=== PATIENT | male | born 1960 | race Two or more races ===

== ENCOUNTER 2016-07-21 09:29 | Inpatient (IN) | payer OTHER ==
[2016-07-21 09:56] VITALS: BMI 25.7
--- NOTE | 2016-07-21 13:11 | HP ---
COWS - Scale Resting Pulse: 0= [place] 80 or Below Sweatin=Flushed/Facial Moisture Restless Observation: 1= Difficult to Sit Still Pupil Size: 0= Normal to Room Light Bone or Joint Aches: 2= Severe Diffuse Aches Runny Nose/ Eye Tearin= Runny Nose/Eyes GI Upset > 30mins: 2= Nausea/Diarrhea Tremor Observation: 2= Slight Tremor Visible Yawning Observation: 2= >3x During Session Anxiety or Irritability: 2=Irritable/Anxious Goose Flesh Skin: 3=Piloerection COWS Score: 18 CIWA Score - CIWA Score Nausea/Vomitin-Mild Nausea/No Vomiting Muscle Tremors: 4-Moderate,w/Arms Extend Anxiety: 4-Mod. Anxious/Guarded Agitation: 4-Moderately Restless Paroxysmal Sweats: 3 Orientation: 0-Oriented Tacttile Disturbances: 0-None Auditory Disturbances: 0-None Visual Disturbances: 0-None Headache: 1-Very Mild CIWA-Ar Total Score: 17 Admission ROS BHS - HPI Chief Complaint: I am here for detox then to go to rehab. Allergies/Adverse Reactions: Allergies Allergy/AdvReac Type Severity Reaction Status Date / Time No Known Allergies Allergy Verified 07/21/16 11:34 History of Present Illness: pt is a 56yr old male with a history of heroin, alcohol and xanax dependence seeking detox for treatment. Exam Limitations: No Limitations - Ebola screening Have you traveled outside of the country in the last 21 days: No Have you had contact with anyone from an Ebola affected area: No Have you been sick,other than usual withdrawal symptoms: No Do you have a fever: No - Review of Systems Constitutional: Chills, Diaphoresis, Loss of Appetite, Night Sweats, Changes in sleep, Unintentional Wgt. Loss EENT: reports: Blurred Vision, Tearing Respiratory: reports: Cough Cardiac: reports: No Symptoms Reported GI: reports: Diarrhea, Nausea, Poor Appetite, Poor Fluid Intake, Indigestion : reports: No Symptoms Reported Musculoskeletal: reports: No Symptoms Reported Integumentary: reports: Flushing, Sweating Neuro: reports: Headache, Tingling, Tremors Endocrine: reports: Excessive Sweating, Flushing, Intolerance to Cold, Intolerance to Heat Hematology: reports: No Symptoms Reported Psychiatric: reports: Judgement Intact, Mood/Affect Appropiate, Orientated x3, Agitated, Anxious Other Systems: Reviewed and Negative Patient History - Patient Medical History Hx Anemia: No Hx Asthma: No Hx Chronic Obstructive Pulmonary Disease (COPD): No Hx Cancer: No Hx Cardiac Disorders: No Hx Congestive Heart Failure: No Hx Hypertension: No Hx Hypercholesterolemia: No Hx Pacemaker: No HX Cerebrovascular Accident: No Hx Seizures: No Hx Dementia: No Hx Diabetes: No Hx Gastrointestinal Disorders: Yes (GERD) Hx Liver Disease: No Hx Genitourinary Disorders: No Hx Sexually Transmitted Disorders: No Hx Renal Disease (ESRD): No Hx Thyroid Disease: No Hx Human Immunodeficiency Virus (HIV): No (NEGATIVE LAST 09/30) Hx Hepatitis C: Yes (follow up with pcp) Hx Depression: Yes Hx Suicide Attempt: Yes (Tried to burn himself) Hx Bipolar Disorder: No Hx Schizophrenia: No - Patient Surgical History Past Surgical History: Yes Hx Neurologic Surgery: No Hx Cataract Extraction: No Hx Cardiac Surgery: No Hx Lung Surgery: No Hx Breast Surgery: No Hx Breast Biopsy: No Hx Abdominal Surgery: No Hx Appendectomy: No Hx Cholecystectomy: No Hx Genitourinary Surgery: No Hx Section: No Hx Orthopedic Surgery: Yes (rt patella surgery at age 13 (fall)) Anesthesia Reaction: No - PPD History Previous Implant?: Yes Documented Results: Negative w/proof Implanted On Prior R Admission?: Yes Date: 05/26/16 Results: 0 mm PPD to be Administered?: No - Reproductive History Patient is a Female of Child Bearing Age (11 -55 yrs old): No - Smoking Cessation Smoking history: Current every day smoker Have you smoked in the past 12 months: Yes Aproximately how many cigarettes per day: 20 Cigars Per Day: 20 Hx Chewing Tobacco Use: No Initiated information on smoking cessation: Yes 'Breaking Loose' booklet given: 07/21/16 - Substance & Tx. History Hx Alcohol Use: Yes Hx Substance Use: Yes Substance Use Type: Alcohol, Heroin, Tranquilizers Hx Substance Use Treatment: Yes - Substances Abused Heroin Route: Inhalation Frequency: Daily Amount used: 12-15 bags Age of first use: 49 Date of Last Use: 07/21/16 Alcohol Route: Oral Frequency: Daily Amount used: 10 beers Age of first use: 22 Date of Last Use: 07/20/16 Alprazolam (Xanax) Route: Oral Frequency: Daily Amount used: 6mg Age of first use: 49 Date of Last Use: 07/20/16 Family Disease History - Family Disease History Family Disease History: CA: Mother (ca of breast with metastasis,) Admission Physical Exam [facility] - Vital Signs Vital Signs: Vital Signs - 24 hr 07/21/16 09:54 Temperature 98.2 F Pulse Rate 74 Respiratory 18 Rate Blood Pressure 126/77 - Physical General Appearance: Yes: Appropriately Dressed, Moderate Distress, Thin, Tremorous, Irritable, Sweating, Anxious HEENTM: Yes: Hearing grossly Normal, Normal Voice Respiratory: Yes: Normal Breath Sounds, No Respiratory Distress, Rhonchi, Wheezing Neck: Yes: No masses,lesions,Nodules Breast: Yes: Within Normal Limits, No Discharge, No masses Cardiology: Yes: Regular Rhythm, Regular Rate, S1, S2 Abdominal: Yes: Normal Bowel Sounds, Non Tender, Soft Genitourinary: Yes: Within Normal Limits Back: Yes: Normal Inspection Musculoskeletal: Yes: full range of Motion Extremities: Yes: Normal Capillary Refill, Normal Inspection, Non-Tender, Tremors Neurological: Yes: Fully Oriented, Alert, Normal Response Integumentary: Yes: Normal Color, Diaphoresis Lymphatic: Yes: Within Normal Limits - Diagnostic (1) Cocaine dependence Current Visit: Yes Status: Chronic Qualifiers: Substance use status: uncomplicated Qualified Code(s): F14.20 - Cocaine dependence, uncomplicated (2) Alcohol dependence with uncomplicated withdrawal Current Visit: Yes Status: Chronic (3) GERD (gastroesophageal reflux disease) Current Visit: Yes Status: Chronic Qualifiers: Esophagitis presence: without esophagitis Qualified Code(s): K21.9 - Gastro-esophageal reflux disease without esophagitis (4) Opioid dependence with withdrawal Current Visit: Yes Status: Chronic (5) Sedative, hypnotic or anxiolytic dependence with withdrawal, uncomplicated Current Visit: Yes Status: Chronic Cleared for Admission [facility] - Detox or Rehab [facility] Level of Care: Medically Managed Detox Regimen/Protocol: Methadone/Valium [facility] Breath Alcohol Content Breath Alcohol Content: 0 Urine Drug Screen - Results Drug Screen Negative: No Urine Drug Screen Results: OPI-Opiates, MDMA-Ecstasy, BZO-Benzodiazepines, MTD- Methadone, TCA-Tricyclic Antidepress, OXY-Oxycodone
[2016-07-21] MEDS ORDERED: hydrOXYzine PAMOATE 50 MG CAPSULE (FP) PO PRN (13:41)
[2016-07-21] MEDS ORDERED: MAGNESIUM CITRATE 300 ML BOTTLE PO PRN (13:41)
[2016-07-21] MEDS ORDERED: guaiFENesin/D-METHORPHAN HB 10 ML UNIT-DOSE CUPS PO PRN (13:41)
[2016-07-21] MEDS ORDERED: LOPERAMIDE HCL 2 MG CAPSULE PO PRN (13:41)
[2016-07-21] MEDS ORDERED: IBUPROFEN 400 MG TABLET (FP) PO PRN (13:41)
[2016-07-21] MEDS ORDERED: NICOTINE POLACRILEX 4 MG GUM BUC PRN (13:41)
[2016-07-21] MEDS ORDERED: P-EPHED 60MG/TRIPROLIDI 2.5MG TABLET PO PRN (13:41)
[2016-07-21] MEDS ORDERED: MAG HYDROX/AL HYDROX/SIMETH 30 ML UNIT-DOSE CUP PO PRN (13:41)
[2016-07-21] MEDS ORDERED: MENTHOL/PHENOL 1 EACH UD MM PRN (13:41)
[2016-07-21] MEDS ORDERED: diphenhydrAMINE HCL 50 MG CAPSULE PO PRN (13:41)
[2016-07-21] MEDS ORDERED: MAGNESIUM HYDROX 2400MG/30ML ORAL SUSPENSION 30 ML CUP PO PRN (13:41)
[2016-07-21] MEDS ORDERED: ACETAMINOPHEN 325 MG TABLET (FP) PO PRN (13:41)
[2016-07-21] MEDS ORDERED: PATIENT'S OWN MEDICATION (NON-FORMULARY) (Meloxicam 15 MG) PO PRN (13:46)
[2016-07-21] MEDS ORDERED: diazePAM 5 MG TABLET PO ONE (14:07)
[2016-07-21] MEDS ORDERED: METHADONE HCL 10 MG TABLET (FOR DETOX USE ONLY) PO ONE ×2 (14:10→23:00)
[2016-07-21 14:55] LABS: HIV 1 & 2 AB NEGATIVE; HIV 1 AGp24 NEGATIVE
[2016-07-21 17:42] LABS: URINE APPEARANCE CLEAR; URINE BILIRUBIN NEGATIVE (NEGATIVE); URINE BLOOD NEGATIVE (NEGATIVE); URINE COLOR YELLOW; URINE GLUCOSE (UA) NEGATIVE (NEGATIVE); URINE KETONE NEGATIVE (NEGATIVE); URINE LEUK ESTERASE NEGATIVE (NEGATIVE); URINE NITRITE NEGATIVE (NEGATIVE); URINE PROTEIN NEGATIVE (NEGATIVE); URINE UROBILINOGEN NEGATIVE E.U./dl (0.2-1.0)
[2016-07-21] MEDS: diazePAM 5 MG TABLET PO SCH (22:14)
[2016-07-21] MEDS: RANITIDINE HCL 150 MG TABLET (FP) PO SCH (22:14)
[2016-07-21] MEDS: NAPROXEN 500 MG TABLET (FP) PO SCH (22:14)
[2016-07-21] MEDS: GABAPENTIN 300 MG CAPSULE (FP) PO SCH (22:14)
[2016-07-21] MEDS: THIAMINE HCL 100 MG TABLET (FP) PO SCH (22:14)
[2016-07-21] MEDS ORDERED: ZOLPIDEM TARTRATE 5 MG TABLET ONE (22:53)
[2016-07-22] MEDS: diazePAM 5 MG TABLET PO SCH ×3 (05:57→22:16)
[2016-07-22] MEDS ORDERED: METHADONE HCL 10 MG TABLET (FOR DETOX USE ONLY) PO SCH (10:00)
[2016-07-22 10:16] LABS: MCH 32.1 pg (25.7-33.7); MCHC 33.5 g/dl (32.0-35.9); MEAN CELL VOLUME 95.9 fl (80-96); MEAN PLT VOLUME 8.4 fl (7.5-11.1); PLATELET COUNT 194 K/MM3 (134-434); RDW 13.2 % (11.9-15.9); WHITE BLOOD COUNT 6.3 K/mm3 (4.0-10.0)
--- NOTE | 2016-07-22 10:28 | PN ---
S CIWA - CIWA Score Nausea/Vomitin Muscle Tremors: 3 Anxiety: 2 Agitation: 2 Paroxysmal Sweats: 1-Minimal Palms Moist Orientation: 0-Oriented Tacttile Disturbances: 1-Very Mild Itch/Numbness Auditory Disturbances: 1-Very Mild Visual Disturbances: 1-Very Mild Sensitivity Headache: 2-Mild CIWA-Ar Total Score: 16 BHS COWS - Scale Resting Pulse: 0= [place] 80 or Below Sweatin= Chills/Flushing Restless Observation: 3= Extraneous Movement Pupil Size: 1= Pupils >than Normal Bone or Joint Aches: 2= Severe Diffuse Aches Runny Nose/ Eye Tearin= Runny Nose/Eyes GI Upset > 30mins: 3= Vomiting/Diarrhea Tremor Observation of Outstretched Hands: 2= Slight Tremor Visible Yawning Observation: 1= 1-2x During Session Anxiety or Irritability: 2=Irritable/Anxious Goose Flesh Skin: 0=Smooth Skin COWS Score: 17 S Progress Note (SOAP) Subjective: ALERT,IRRITABLE,ANXIOUS,INTERRUPTED SLEEP,TREMOR,PAIN IN THE BODY AND BACK Objective: 07/22/16 10:27 Vital Signs Temperature 97.2 F L 07/22/16 09:45 Pulse Rate 73 07/22/16 09:45 Respiratory Rate 18 07/22/16 09:45 Blood Pressure 100/67 07/22/16 09:45 O2 Sat by Pulse Oximetry (%) EKG NSR Laboratory Last Values WBC 6.3 K/mm3 (4.0-10.0) 07/22/16 06:00 RBC 4.26 M/mm3 (4.00-5.60) 07/22/16 06:00 Hgb 13.7 GM/dL (11.7-16.9) 07/22/16 06:00 Hct 40.8 % (35.4-49) 07/22/16 06:00 MCV 95.9 fl (80-96) 07/22/16 06:00 MCHC 33.5 g/dl (32.0-35.9) 07/22/16 06:00 RDW 13.2 % (11.9-15.9) 07/22/16 06:00 Plt Count 194 K/MM3 (134-434) 07/22/16 06:00 MPV 8.4 fl (7.5-11.1) 07/22/16 06:00 Urine Color Yellow 07/21/16 15:20 Urine Appearance Clear 07/21/16 15:20 Urine pH 5.0 (5.0-8.0) D 07/21/16 15:20 Ur Specific [place] 1.015 (1.001-1.035) 07/21/16 15:20 Urine Protein Negative (NEGATIVE) 07/21/16 15:20 Urine Glucose (UA) Negative (NEGATIVE) 07/21/16 15:20 Urine Ketones Negative (NEGATIVE) 07/21/16 15:20 Urine Blood Negative (NEGATIVE) 07/21/16 15:20 Urine Nitrite Negative (NEGATIVE) 07/21/16 15:20 Urine Bilirubin Negative (NEGATIVE) 07/21/16 15:20 Urine Urobilinogen Negative E.U./dl (0.2-1.0) 07/21/16 15:20 Ur Leukocyte Esterase Negative (NEGATIVE) 07/21/16 15:20 HIV 1&2 Antibody Screen Negative 07/21/16 11:35 HIV P24 Antigen Negative 07/21/16 11:35 LABS PENDING Assessment: 07/22/16 10:28 WITHDRAWAL SYMPTOM Plan: CONTINUE DETOX
[2016-07-22] MEDS: NAPROXEN 500 MG TABLET (FP) PO SCH ×2 (10:36→22:16)
[2016-07-22] MEDS: AMITRIPTYLINE HCL 25 MG TABLET (FP) PO SCH ×2 (10:36→22:15)
[2016-07-22] MEDS: NICOTINE 21 MG/24 HOURS TOPICAL PATCH TD SCH (10:36)
[2016-07-22] MEDS: RANITIDINE HCL 150 MG TABLET (FP) PO SCH ×2 (10:36→22:16)
[2016-07-22] MEDS: PRENATAL VITAMINS W/ FOLIC ACID TABLET (FP) PO SCH (10:36)
[2016-07-22] MEDS: diazePAM 5 MG TABLET PO PRN (10:37)
[2016-07-22] MEDS: GABAPENTIN 300 MG CAPSULE (FP) PO SCH ×2 (10:37→22:16)
[2016-07-22 10:57] LABS: ALBUMIN 4.1 g/dl (3.4-5.0); ALK PHOS 94 U/L (45-117); ANION GAP 7 (8-16); BILIRUBIN,TOTAL 0.3 mg/dL (0.2-1.0); CALCIUM 9.1 mg/dL (8.5-10.1); CO2 25 mmol/L (21-32); CREATININE 0.9 mg/dL (0.7-1.3); GLUCOSE,RANDOM 109 mg/dL (74-106); SGOT/AST 59 U/L (15-37); SGPT/ALT 97 U/L (12-78); TOT PROT 7.6 g/dl (6.4-8.2)
--- NOTE | 2016-07-22 14:48 | CONSULT ---
[facility] Psychiatric Consult - Data Date of interview: 07/22/16 Admission source: [facility] Identifying data: This is 56 years old male with psychiatric hospitalization history intoxicated with Alcohol, Opioids, Cocaine, Xanax and Nicotine Substance Abuse History: Smoking history: Current every day smoker. Have you smoked in the past 12 months: Yes. Aproximately how many cigarettes per day: 20. Cigars Per Day: 20. Hx Chewing Tobacco Use: No. Initiated information on smoking cessation: Yes. 'Breaking Loose' booklet given: 07/21/16. - Substance & Tx. History. Hx Alcohol Use: Yes. Hx Substance Use: Yes. Substance Use Type : Alcohol, Heroin, Tranquilizers. Hx Substance Use Treatment: Yes. - Substances Abused. Heroin. Route: Inhalation. Frequency: Daily. Amount used: 12-15 bags. Age of first use: 49. Date of Last Use: 07/21/16. Alcohol. Route: Oral. Frequency: Daily. Amount used: 10 beers. Age of first use: 22. Date of Last Use: 07/20/16. Alprazolam (Xanax). Route: Oral. Frequency: Daily. Amount used: 6mg. Age of first use: 49. Date of Last Use: 07/20/16 Medical History: GERD, Weight loss, HepC+ Psychiatric History: Patient reports history of MDD, PTSD, with most recent psychiatric admission on 2012 at [facility]. Patient reports taking prior to admission: Zyprexa 10mg po qhs. Elavil 50mg po bid. Ambien 10mg po qhs Physical/Sexual Abuse/Trauma History: Denies Additional Comment: Zyprexa 10mg po qhs. Elavil 50mg po bid. Ambien 10mg po qhs Mental Status Exam - Mental Status Exam Alert and Oriented to: Person Cognitive Function: Fair Patient Appearance: Unkempt Mood: Sad Affect: Flat Patient Behavior: Aggressive Speech Pattern: Delayed Voice Loudness: Mildly Soft/Quiet Thought Process: Circumstantial Thought Disorder: Being Controlled Hallucinations: Denies Suicidal Ideation: Denies Homicidal Ideation: Denies Insight/Judgement: Fair Sleep: Difficulty falling asleep Appetite: Weight loss Muscle strength/Tone: Mild Hypotonicity Gait/Station: Shuffling Additional Comments: Zyprexa 10mg po qhs. Elavil 50mg po bid. Ambien 10mg po qhs Psychiatric Findings - Problem List ([place] 1, 2,3) (1) Alcohol dependence with uncomplicated withdrawal Current Visit: Yes Status: Chronic (2) Cocaine dependence Current Visit: Yes Status: Chronic Qualifiers: Substance use status: uncomplicated Qualified Code(s): F14.20 - Cocaine dependence, uncomplicated (3) Opioid dependence with withdrawal Current Visit: Yes Status: Chronic (4) Sedative, hypnotic or anxiolytic dependence with withdrawal, uncomplicated Current Visit: Yes Status: Chronic (5) Anxiety and depression Current Visit: No Status: Acute (6) Drug-induced mood disorder Current Visit: No Status: Acute (7) Substance-induced sleep disorder Current Visit: No Status: Acute (8) Nicotine dependence Current Visit: No Status: Chronic Qualifiers: Nicotine product type: cigarettes Substance use status: uncomplicated Qualified Code(s): F17.210 - Nicotine dependence, cigarettes, uncomplicated (9) PTSD Current Visit: No Status: Suspected Comment: Historical diagnosis. - Initial Treatment Plan Initial Treatment Plan: Zyprexa 10mg po qhs. Elavil 50mg po bid. Ambien 10mg po qhs
[2016-07-22] MEDS: THIAMINE HCL 100 MG TABLET (FP) PO SCH (22:15)
[2016-07-22] MEDS: OLANZapine 10 MG TABLET PO SCH (22:16)
[2016-07-23] MEDS: diazePAM 5 MG TABLET PO PRN (05:51)
--- NOTE | 2016-07-23 10:45 | PN ---
[facility] CIWA - CIWA Score Nausea/Vomitin Muscle Tremors: 3 Anxiety: 3 Agitation: 2 Paroxysmal Sweats: 1-Minimal Palms Moist Orientation: 0-Oriented Tacttile Disturbances: 1-Very Mild Itch/Numbness Auditory Disturbances: 1-Very Mild Visual Disturbances: 1-Very Mild Sensitivity Headache: 2-Mild CIWA-Ar Total Score: 17 BHS COWS - Scale Resting Pulse: 0= [place] 80 or Below Sweatin= Chills/Flushing Restless Observation: 3= Extraneous Movement Pupil Size: 1= Pupils >than Normal Bone or Joint Aches: 2= Severe Diffuse Aches Runny Nose/ Eye Tearin= Runny Nose/Eyes GI Upset > 30mins: 2= Nausea/Diarrhea Tremor Observation of Outstretched Hands: 2= Slight Tremor Visible Yawning Observation: 1= 1-2x During Session Anxiety or Irritability: 2=Irritable/Anxious Goose Flesh Skin: 0=Smooth Skin COWS Score: 16 S Progress Note (SOAP) Subjective: alert,irritable,anxious,pain in the body,back,tremor,interrupted sleep Objective: 07/23/16 10:44 Vital Signs Temperature 96.2 F L 07/23/16 09:57 Pulse Rate 66 07/23/16 09:57 Respiratory Rate 18 07/23/16 09:57 Blood Pressure 94/68 07/23/16 09:57 O2 Sat by Pulse Oximetry (%) Laboratory Last Values WBC 6.3 K/mm3 (4.0-10.0) 07/22/16 06:00 RBC 4.26 M/mm3 (4.00-5.60) 07/22/16 06:00 Hgb 13.7 GM/dL (11.7-16.9) 07/22/16 06:00 Hct 40.8 % (35.4-49) 07/22/16 06:00 MCV 95.9 fl (80-96) 07/22/16 06:00 MCHC 33.5 g/dl (32.0-35.9) 07/22/16 06:00 RDW 13.2 % (11.9-15.9) 07/22/16 06:00 Plt Count 194 K/MM3 (134-434) 07/22/16 06:00 MPV 8.4 fl (7.5-11.1) 07/22/16 06:00 Sodium 136 mmol/L (136-145) 07/22/16 06:00 Potassium 4.4 mmol/L (3.5-5.1) 07/22/16 06:00 Chloride 104 mmol/L (98-107) 07/22/16 06:00 Carbon Dioxide 25 mmol/L (21-32) 07/22/16 06:00 Anion Gap 7 (8-16) L 07/22/16 06:00 BUN 15 mg/dL (7-18) D 07/22/16 06:00 Creatinine 0.9 mg/dL (0.7-1.3) 07/22/16 06:00 Creat Clearance w eGFR > 60 (>60) 07/22/16 06:00 Random Glucose 109 mg/dL (74-106) H D 07/22/16 06:00 Calcium 9.1 mg/dL (8.5-10.1) 07/22/16 06:00 Total Bilirubin 0.3 mg/dL (0.2-1.0) D 07/22/16 06:00 AST 59 U/L (15-37) H D 07/22/16 06:00 ALT 97 U/L (12-78) H D 07/22/16 06:00 Alkaline Phosphatase 94 U/L (45-117) 07/22/16 06:00 Total Protein 7.6 g/dl (6.4-8.2) 07/22/16 06:00 Albumin 4.1 g/dl (3.4-5.0) 07/22/16 06:00 Urine Color Yellow 07/21/16 15:20 Urine Appearance Clear 07/21/16 15:20 Urine pH 5.0 (5.0-8.0) D 07/21/16 15:20 Ur Specific [place] 1.015 (1.001-1.035) 07/21/16 15:20 Urine Protein Negative (NEGATIVE) 07/21/16 15:20 Urine Glucose (UA) Negative (NEGATIVE) 07/21/16 15:20 Urine Ketones Negative (NEGATIVE) 07/21/16 15:20 Urine Blood Negative (NEGATIVE) 07/21/16 15:20 Urine Nitrite Negative (NEGATIVE) 07/21/16 15:20 Urine Bilirubin Negative (NEGATIVE) 07/21/16 15:20 Urine Urobilinogen Negative E.U./dl (0.2-1.0) 07/21/16 15:20 Ur Leukocyte Esterase Negative (NEGATIVE) 07/21/16 15:20 RPR Titer Nonreactive (NONREACTIVE) 07/22/16 06:00 HIV 1&2 Antibody Screen Negative 07/21/16 11:35 HIV P24 Antigen Negative 07/21/16 11:35 Assessment: 07/23/16 10:45 withdrawal symptom Plan: continue detox,d/c tylenol
[2016-07-23] MEDS: PRENATAL VITAMINS W/ FOLIC ACID TABLET (FP) PO SCH (10:49)
[2016-07-23] MEDS: AMITRIPTYLINE HCL 25 MG TABLET (FP) PO SCH ×2 (10:49→22:09)
[2016-07-23] MEDS: RANITIDINE HCL 150 MG TABLET (FP) PO SCH ×2 (10:49→22:08)
[2016-07-23] MEDS: NICOTINE 21 MG/24 HOURS TOPICAL PATCH TD SCH (10:49)
[2016-07-23] MEDS: NAPROXEN 500 MG TABLET (FP) PO SCH ×2 (10:49→22:08)
[2016-07-23] MEDS: METHADONE HCL 5 MG TABLET (FOR DETOX USE ONLY) PO SCH (10:49)
[2016-07-23] MEDS: diazePAM 5 MG TABLET PO SCH ×2 (10:49→22:08)
[2016-07-23] MEDS: GABAPENTIN 300 MG CAPSULE (FP) PO SCH ×2 (10:49→22:08)
[2016-07-23] MEDS: OLANZapine 10 MG TABLET PO SCH (22:08)
[2016-07-23] MEDS: ZOLPIDEM TARTRATE 10 MG TABLET (PARK CARE ONLY) PO PRN (22:09)
[2016-07-23] MEDS: THIAMINE HCL 100 MG TABLET (FP) PO SCH (22:44)
[2016-07-24] MEDS: METHADONE HCL 5 MG TABLET (FOR DETOX USE ONLY) PO SCH (10:28)
[2016-07-24] MEDS: diazePAM 5 MG TABLET PO SCH ×2 (10:28→23:04)
[2016-07-24] MEDS: PRENATAL VITAMINS W/ FOLIC ACID TABLET (FP) PO SCH (10:28)
[2016-07-24] MEDS: RANITIDINE HCL 150 MG TABLET (FP) PO SCH ×2 (10:28→23:04)
[2016-07-24] MEDS: NAPROXEN 500 MG TABLET (FP) PO SCH ×2 (10:29→23:04)
[2016-07-24] MEDS: GABAPENTIN 300 MG CAPSULE (FP) PO SCH ×2 (10:29→23:04)
[2016-07-24] MEDS: AMITRIPTYLINE HCL 25 MG TABLET (FP) PO SCH ×2 (10:29→23:04)
[2016-07-24] MEDS: NICOTINE 21 MG/24 HOURS TOPICAL PATCH TD SCH (10:29)
[2016-07-24] MEDS: diazePAM 5 MG TABLET PO PRN (12:26)
[2016-07-24] MEDS: OLANZapine 10 MG TABLET PO SCH (23:04)
[2016-07-24] MEDS: ZOLPIDEM TARTRATE 10 MG TABLET (PARK CARE ONLY) PO PRN (23:04)
[2016-07-24] MEDS: THIAMINE HCL 100 MG TABLET (FP) PO SCH (23:04)
--- NOTE | 2016-07-24 23:14 | PN ---
[id number] Vital Signs - 8 hr 07/24/16 20:04 Temperature 96.8 F L Pulse Rate 90 Respiratory 16 Rate Blood Pressure 112/76 Assessment: 07/24/16 23:13 Withdrawal sx. Plan: CONTINUE DETOX
[2016-07-25] MEDS ORDERED: diazePAM 5 MG TABLET PO SCH (10:00)
[2016-07-25] MEDS ORDERED: METHADONE HCL 10 MG TABLET (FOR DETOX USE ONLY) PO SCH (10:00)
[2016-07-25] MEDS: NAPROXEN 500 MG TABLET (FP) PO SCH ×2 (10:20→22:49)
[2016-07-25] MEDS: GABAPENTIN 300 MG CAPSULE (FP) PO SCH ×2 (10:21→22:49)
[2016-07-25] MEDS: RANITIDINE HCL 150 MG TABLET (FP) PO SCH ×2 (10:21→22:48)
[2016-07-25] MEDS: PRENATAL VITAMINS W/ FOLIC ACID TABLET (FP) PO SCH (10:21)
[2016-07-25] MEDS: AMITRIPTYLINE HCL 25 MG TABLET (FP) PO SCH ×2 (10:21→22:48)
[2016-07-25] MEDS: NICOTINE 21 MG/24 HOURS TOPICAL PATCH TD SCH (10:22)
--- NOTE | 2016-07-25 15:14 | PN ---
BHS Progress Note (SOAP) Subjective: Anxiety, restless, sweats Objective: 07/25/16 15:12 Last Vital Signs Temp Pulse Resp BP Pulse Ox 96 F L 102 H 20 104/75 07/25/16 13:40 07/25/16 13:40 07/25/16 13:40 07/25/16 13:40 Laboratory Tests 07/21/16 07/21/16 07/22/16 11:35 15:20 06:00 WBC 6.3 RBC 4.26 Hgb 13.7 Hct 40.8 MCV 95.9 MCHC 33.5 RDW 13.2 Plt Count 194 MPV 8.4 Sodium Potassium Chloride Carbon Dioxide Anion Gap BUN Creatinine Creat Clearance w eGFR Random Glucose Calcium Total Bilirubin AST ALT Alkaline Phosphatase Total Protein Albumin Urine Color Yellow Urine Appearance Clear Urine pH 5.0 D Ur Specific [place] 1.015 Urine Protein Negative Urine Glucose (UA) Negative Urine Ketones Negative Urine Blood Negative Urine Nitrite Negative Urine Bilirubin Negative Urine Urobilinogen Negative Ur Leukocyte Esterase Negative RPR Titer HIV 1&2 Antibody Screen Negative HIV P24 Antigen Negative 07/22/16 07/22/16 06:00 06:00 WBC RBC Hgb Hct MCV MCHC RDW Plt Count MPV Sodium 136 Potassium 4.4 Chloride 104 Carbon Dioxide 25 Anion Gap 7 L BUN 15 D Creatinine 0.9 Creat Clearance w eGFR > 60 Random Glucose 109 H D Calcium 9.1 Total Bilirubin 0.3 D AST 59 H D ALT 97 H D Alkaline Phosphatase 94 Total Protein 7.6 Albumin 4.1 Urine Color Urine Appearance Urine pH Ur Specific [place] Urine Protein Urine Glucose (UA) Urine Ketones Urine Blood Urine Nitrite Urine Bilirubin Urine Urobilinogen Ur Leukocyte Esterase RPR Titer Nonreactive HIV 1&2 Antibody Screen HIV P24 Antigen Labs noted: serum glucose 109mg/dl Assessment: 07/25/16 15:13 Withdrawal symptoms Noted with hyperglycemia Plan: Continue detox Hyperglycemia: will order HbA1c today
[2016-07-25] MEDS: OLANZapine 10 MG TABLET PO SCH (22:48)
[2016-07-25] MEDS: THIAMINE HCL 100 MG TABLET (FP) PO SCH (22:49)
[2016-07-26] MEDS ORDERED: METHADONE HCL 5 MG TABLET (FOR DETOX USE ONLY) PO SCH (06:00)
[2016-07-26 06:13] VITALS: BP 104/76; PULSE 67; TEMP 97.1
--- NOTE | 2016-07-26 08:35 | PN ---
S Progress Note (SOAP) Subjective: alert,no complaint Objective: 07/26/16 08:34 Vital Signs Temperature 97.1 F L 07/26/16 06:13 Pulse Rate 67 07/26/16 06:13 Respiratory Rate 18 07/26/16 06:13 Blood Pressure 104/76 07/26/16 06:13 O2 Sat by Pulse Oximetry (%) Assessment: 07/26/16 08:34 detox completed,no withdrawal symptom Plan: discharge today,follow up with after care program as arrangement
--- NOTE | 2016-07-26 08:38 | DS ---
[facility] Detox Discharge Summary Admission Date: 07/21/16 Discharge Date: 07/26/16 - History Present History: Alcohol Dependence, Cocaine Dependence, Opioid Dependence, Sedative Dependence Additional Comments: follow up with after care program as arrangement and pmd for medical problem Pertinent Past History: gerd - Physical Exam Results Vital Signs: Vital Signs Temperature 97.1 F L 07/26/16 06:13 Pulse Rate 67 07/26/16 06:13 Respiratory Rate 18 07/26/16 06:13 Blood Pressure 104/76 07/26/16 06:13 O2 Sat by Pulse Oximetry (%) Pertinent Admission Physical Exam Findings: withdrawal symptom - Treatment Hospital Course: Detox Protocol Followed, Detoxed Safely, Responded well, Discharged Condition Good Patient has Accepted a Rehab Referral to: declined - Medication Discharge Medications: Ambulatory Orders Meloxicam [Mobic (Nf) -] 15 mg PO HS PRN 08/04/15 Omeprazole [Prilosec] 40 mg PO DAILY 12/28/15 Zolpidem Tartrate [Ambien] 10 mg PO HS 12/28/15 Amitriptyline HCl [Elavil -] 50 mg PO BID #60 tablet 05/24/16 Gabapentin [Neurontin -] 300 mg PO BID 07/21/16 Olanzapine [Zyprexa -] 10 mg PO HS 07/21/16 Amitriptyline HCl [Elavil -] 50 mg PO BID #60 tablet 07/22/16 Olanzapine [ZyPREXA -] 10 mg PO HS #30 tablet 07/22/16 Zolpidem Tartrate [Ambien] 10 mg PO HS PRN #14 tablet MDD 10 07/22/16 - AMA Did Patient Leave Against Medical Advice: No
== END 2016-07-26 09:16 | disposition home or self-care (01) | DRG 773 ==
LOC: YASAS 09:29 → Y3N 11:52
PROVIDERS: ADMIT Internal Medicine; ATTEND Internal Medicine
PROC: HZ2ZZZZ Detoxification Services for Substance Abuse Treatment (ICD-10-PCS; principal; 2016-07-21)
DX: F11.23 Opioid dependence with withdrawal (principal); F13.230 Sedative, hypnotic or anxiolytic dependence with withdrawal, uncomplicated; F10.230 Alcohol dependence with withdrawal, uncomplicated; F14.20 Cocaine dependence, uncomplicated; F17.210 Nicotine dependence, cigarettes, uncomplicated; F41.8 Other specified anxiety disorders; F19.24 Other psychoactive substance dependence with psychoactive substance-induced mood disorder; F19.282 Other psychoactive substance dependence with psychoactive substance-induced sleep disorder; K21.9 Gastro-esophageal reflux disease without esophagitis; R73.9 Hyperglycemia, unspecified; Z86.59 Personal history of other mental and behavioral disorders; Z91.5 Personal history of self-harm
CPT/HCPCS: 36415; 80053; 81003; 85027; 86593; 87389; 93005; 93010

== ENCOUNTER 2020-12-18 12:24 | Inpatient (IN) | payer OTHER ==
[2020-12-18 14:49] VITALS: BMI 26.0
[2020-12-18] MEDS ORDERED: NICOTINE POLACRILEX 2 MG GUM BC PRN (19:50)
[2020-12-18] MEDS ORDERED: MAGNESIUM CITRATE 300 ML BOTTLE PO PRN (19:50)
[2020-12-18] MEDS ORDERED: MAG HYDROX/AL HYDROX/SIMETH 30 ML UNIT-DOSE CUP PO PRN (19:50)
[2020-12-18] MEDS ORDERED: hydrOXYzine PAMOATE 25 MG CAPSULE (FP) PO PRN (19:50)
[2020-12-18] MEDS ORDERED: guaiFENesin 200 MG/10 ML 10 ML UNIT-DOSE CUPS PO PRN (19:50)
[2020-12-18] MEDS ORDERED: NALOXONE (NARCAN) HCL 4 MG/0.1 ML SPRAY NS PRN (19:50)
[2020-12-18] MEDS ORDERED: ACETAMINOPHEN 325 MG TABLET (FP) PO PRN (19:50)
[2020-12-18] MEDS ORDERED: NALOXONE HCL 0.4 MG/ML VIAL IM PRN (19:50)
[2020-12-18] MEDS ORDERED: MAGNESIUM HYDROX 2400MG/30ML ORAL SUSPENSION 30 ML CUP PO PRN (19:50)
[2020-12-18] MEDS ORDERED: LOPERAMIDE HCL 2 MG CAPSULE PO PRN (19:50)
[2020-12-18] MEDS ORDERED: P-EPHED 60MG/TRIPROLIDI 2.5MG TABLET PO PRN (19:50)
[2020-12-18] MEDS ORDERED: TUBERCULIN PPD 5 TU/0.1ML VIAL ID ONE (21:54)
[2020-12-18] MEDS ORDERED: MELATONIN 5 MG TABLETS PO SCH (22:00)
[2020-12-18] MEDS: THIAMINE HCL 100 MG TABLET (FP) PO SCH (22:41)
[2020-12-19] MEDS: IBUPROFEN 400 MG TABLET (FP) PO PRN ×3 (06:31→19:23)
[2020-12-19] MEDS ORDERED: METHADONE HCL 40 MG DISPERSABLE TABLET PO ONE (07:45)
[2020-12-19] MEDS: PRENATAL VITAMINS W/ FOLIC ACID TABLET (FP) PO SCH (09:22)
[2020-12-19] MEDS: NICOTINE 21 MG/24 HOURS TOPICAL PATCH TD SCH (09:22)
[2020-12-19] MEDS: PANTOPRAZOLE 20 MG TABLET PO SCH (09:25)
[2020-12-19] MEDS ORDERED: hydrOXYzine PAMOATE 50 MG CAPSULE (FP) PO PRN (09:41)
[2020-12-19] MEDS ORDERED: VENLAFAXINE HCL 150 MG E.R. CAPSULE PO SCH (10:00)
[2020-12-19 11:30] LABS: HEMATOCRIT 36.5 % (35.4-49); HEMOGLOBIN 11.9 GM/dL (11.7-16.9); MCH 29.9 pg (25.7-33.7); MCHC 32.6 g/dl (32.0-35.9); MEAN CELL VOLUME 91.7 fl (80-96); MEAN PLT VOLUME 8.5 fl (7.5-11.1); PLATELET COUNT 259 K/MM3 (134-434); RBC 3.98 M/mm3 (4.00-5.60); RDW 13.9 % (11.9-15.9)
[2020-12-19 11:50] LABS: ALBUMIN 3.6 g/dl (3.4-5.0); CALCIUM 9.5 mg/dL (8.5-10.1)
[2020-12-19 11:53] LABS: CREATININE 0.8 mg/dL (0.55-1.3)
[2020-12-19 11:55] LABS: BILIRUBIN,TOTAL 0.4 mg/dL (0.2-1)
[2020-12-19 11:56] LABS: TOT PROT 6.7 g/dl (6.4-8.2)
[2020-12-19] MEDS: VENLAFAXINE HCL 150 MG E.R. CAPSULE PO SCH (12:02)
[2020-12-19] MEDS ORDERED: BENZOCAINE 20 % GEL TUBE MM PRN (13:48)
[2020-12-19] MEDS: busPIRone HCL 10 MG TABLET (FP) PO SCH ×2 (14:25→21:16)
[2020-12-19] MEDS: THIAMINE HCL 100 MG TABLET (FP) PO SCH (21:16)
[2020-12-19] MEDS: SUVOREXANT 10 MG TABLET PO PRN (21:17)
[2020-12-20] MEDS: busPIRone HCL 10 MG TABLET (FP) PO SCH ×3 (06:30→21:46)
[2020-12-20] MEDS: METHADONE HCL 40 MG DISPERSABLE TABLET PO SCH (06:31)
[2020-12-20] MEDS: IBUPROFEN 400 MG TABLET (FP) PO PRN ×2 (06:49→21:47)
[2020-12-20] MEDS: NICOTINE 21 MG/24 HOURS TOPICAL PATCH TD SCH (09:39)
[2020-12-20] MEDS: VENLAFAXINE HCL 150 MG E.R. CAPSULE PO SCH (09:39)
[2020-12-20] MEDS: PANTOPRAZOLE 20 MG TABLET PO SCH (09:40)
[2020-12-20] MEDS: PRENATAL VITAMINS W/ FOLIC ACID TABLET (FP) PO SCH (09:40)
[2020-12-20 19:58] LABS: EPI CELLS 2 /uL (0-25.1); HYALINE CASTS 1 /uL (0-3.1); PH,URINE 6.5 (5.0-8.0); URINE APPEARANCE CLEAR; URINE BACTERIA 8 /uL (0-1359); URINE BILIRUBIN NEGATIVE (NEGATIVE); URINE COLOR YELLOW; URINE GLUCOSE (UA) NEGATIVE (NEGATIVE); URINE KETONE NEGATIVE (NEGATIVE); URINE LEUK ESTERASE TRACE (NEGATIVE); URINE NITRITE NEGATIVE (NEGATIVE); URINE PROTEIN NEGATIVE (NEGATIVE); URINE RBC 8 /uL (0-23.9); URINE UROBILINOGEN 0.2 mg/dL (0.2-1.0); URINE WBC 1 /uL (0-25.8)
[2020-12-20] MEDS: THIAMINE HCL 100 MG TABLET (FP) PO SCH (21:46)
[2020-12-20] MEDS: SUVOREXANT 10 MG TABLET PO PRN (21:46)
[2020-12-21] MEDS: busPIRone HCL 10 MG TABLET (FP) PO SCH ×3 (05:57→21:09)
[2020-12-21] MEDS: METHADONE HCL 40 MG DISPERSABLE TABLET PO SCH (05:57)
[2020-12-21] MEDS: PANTOPRAZOLE 20 MG TABLET PO SCH (09:30)
[2020-12-21] MEDS: PRENATAL VITAMINS W/ FOLIC ACID TABLET (FP) PO SCH (09:30)
[2020-12-21] MEDS: VENLAFAXINE HCL 150 MG E.R. CAPSULE PO SCH (09:30)
[2020-12-21] MEDS: NICOTINE 21 MG/24 HOURS TOPICAL PATCH TD SCH (09:31)
[2020-12-21] MEDS: THIAMINE HCL 100 MG TABLET (FP) PO SCH (21:09)
[2020-12-21] MEDS: SUVOREXANT 10 MG TABLET PO PRN (21:10)
[2020-12-22] MEDS: busPIRone HCL 10 MG TABLET (FP) PO SCH ×3 (05:51→21:22)
[2020-12-22] MEDS: METHADONE HCL 40 MG DISPERSABLE TABLET PO SCH (05:51)
[2020-12-22] MEDS: VENLAFAXINE HCL 150 MG E.R. CAPSULE PO SCH (07:02)
[2020-12-22] MEDS: PRENATAL VITAMINS W/ FOLIC ACID TABLET (FP) PO SCH (09:21)
[2020-12-22] MEDS: PANTOPRAZOLE 20 MG TABLET PO SCH (09:21)
[2020-12-22] MEDS: NICOTINE 21 MG/24 HOURS TOPICAL PATCH TD SCH (09:21)
[2020-12-22] MEDS: PANTOPRAZOLE 40 MG TABLET PO SCH (10:54)
[2020-12-22] MEDS: THIAMINE HCL 100 MG TABLET (FP) PO SCH (21:22)
[2020-12-22] MEDS ORDERED: SUVOREXANT 10 MG TABLET PO PRN (22:00)
[2020-12-23] MEDS: busPIRone HCL 10 MG TABLET (FP) PO SCH ×3 (05:58→21:05)
[2020-12-23] MEDS: METHADONE HCL 40 MG DISPERSABLE TABLET PO SCH (05:58)
[2020-12-23 06:08] LABS: SARS-CoV-2 NAA Not Detected (Not Detected)
[2020-12-23] MEDS: VENLAFAXINE HCL 150 MG E.R. CAPSULE PO SCH (07:08)
[2020-12-23 07:49] LABS: URINE APPEARANCE CLEAR; URINE BILIRUBIN NEGATIVE (NEGATIVE); URINE COLOR YELLOW; URINE GLUCOSE (UA) NEGATIVE (NEGATIVE); URINE KETONE NEGATIVE (NEGATIVE); URINE LEUK ESTERASE NEGATIVE (NEGATIVE); URINE NITRITE NEGATIVE (NEGATIVE); URINE PROTEIN NEGATIVE (NEGATIVE)
[2020-12-23] MEDS: PRENATAL VITAMINS W/ FOLIC ACID TABLET (FP) PO SCH (10:16)
[2020-12-23] MEDS: NICOTINE 21 MG/24 HOURS TOPICAL PATCH TD SCH (10:16)
[2020-12-23] MEDS: PANTOPRAZOLE 40 MG TABLET PO SCH (10:16)
[2020-12-23] MEDS: IBUPROFEN 400 MG TABLET (FP) PO PRN (10:17)
[2020-12-23] MEDS: THIAMINE HCL 100 MG TABLET (FP) PO SCH (21:05)
[2020-12-23] MEDS: traZODone HCL 100 MG TABLET (FP) PO SCH (21:05)
[2020-12-24] MEDS: METHADONE HCL 40 MG DISPERSABLE TABLET PO SCH (06:06)
[2020-12-24] MEDS: busPIRone HCL 10 MG TABLET (FP) PO SCH ×3 (06:06→21:06)
[2020-12-24] MEDS: VENLAFAXINE HCL 150 MG E.R. CAPSULE PO SCH (07:06)
[2020-12-24] MEDS: PANTOPRAZOLE 40 MG TABLET PO SCH (10:01)
[2020-12-24] MEDS: NICOTINE 21 MG/24 HOURS TOPICAL PATCH TD SCH (10:01)
[2020-12-24] MEDS: PRENATAL VITAMINS W/ FOLIC ACID TABLET (FP) PO SCH (10:01)
[2020-12-24] MEDS: IBUPROFEN 400 MG TABLET (FP) PO PRN (19:02)
[2020-12-24] MEDS: traZODone HCL 100 MG TABLET (FP) PO SCH (21:06)
[2020-12-24] MEDS: THIAMINE HCL 100 MG TABLET (FP) PO SCH (21:06)
[2020-12-25] MEDS: METHADONE HCL 40 MG DISPERSABLE TABLET PO SCH (05:28)
[2020-12-25] MEDS: busPIRone HCL 10 MG TABLET (FP) PO SCH ×3 (05:28→21:04)
[2020-12-25] MEDS: VENLAFAXINE HCL 150 MG E.R. CAPSULE PO SCH (08:02)
[2020-12-25] MEDS: PANTOPRAZOLE 40 MG TABLET PO SCH (10:11)
[2020-12-25] MEDS: PRENATAL VITAMINS W/ FOLIC ACID TABLET (FP) PO SCH (10:11)
[2020-12-25] MEDS: NICOTINE 21 MG/24 HOURS TOPICAL PATCH TD SCH (10:11)
[2020-12-25] MEDS: traZODone HCL 100 MG TABLET (FP) PO SCH (21:04)
[2020-12-25] MEDS: THIAMINE HCL 100 MG TABLET (FP) PO SCH (21:04)
[2020-12-26] MEDS: METHADONE HCL 40 MG DISPERSABLE TABLET PO SCH (05:55)
[2020-12-26] MEDS: busPIRone HCL 10 MG TABLET (FP) PO SCH ×3 (05:55→21:28)
[2020-12-26] MEDS: VENLAFAXINE HCL 150 MG E.R. CAPSULE PO SCH (08:19)
[2020-12-26] MEDS: NICOTINE 21 MG/24 HOURS TOPICAL PATCH TD SCH (10:19)
[2020-12-26] MEDS: PANTOPRAZOLE 40 MG TABLET PO SCH (10:19)
[2020-12-26] MEDS: PRENATAL VITAMINS W/ FOLIC ACID TABLET (FP) PO SCH (10:19)
[2020-12-26] MEDS: THIAMINE HCL 100 MG TABLET (FP) PO SCH (21:28)
[2020-12-26] MEDS: traZODone HCL 100 MG TABLET (FP) PO SCH (21:28)
[2020-12-27] MEDS: METHADONE HCL 40 MG DISPERSABLE TABLET PO SCH (06:35)
[2020-12-27] MEDS: busPIRone HCL 10 MG TABLET (FP) PO SCH ×3 (06:35→21:55)
[2020-12-27] MEDS: VENLAFAXINE HCL 150 MG E.R. CAPSULE PO SCH (07:17)
[2020-12-27] MEDS: NICOTINE 21 MG/24 HOURS TOPICAL PATCH TD SCH (10:00)
[2020-12-27] MEDS: PRENATAL VITAMINS W/ FOLIC ACID TABLET (FP) PO SCH (10:00)
[2020-12-27] MEDS: PANTOPRAZOLE 40 MG TABLET PO SCH (10:00)
[2020-12-27] MEDS: traZODone HCL 100 MG TABLET (FP) PO SCH (21:55)
[2020-12-27] MEDS: THIAMINE HCL 100 MG TABLET (FP) PO SCH (21:55)
[2020-12-28] MEDS: METHADONE HCL 40 MG DISPERSABLE TABLET PO SCH (06:03)
[2020-12-28] MEDS: busPIRone HCL 10 MG TABLET (FP) PO SCH ×3 (06:03→21:33)
[2020-12-28] MEDS: VENLAFAXINE HCL 150 MG E.R. CAPSULE PO SCH (07:03)
[2020-12-28] MEDS: PRENATAL VITAMINS W/ FOLIC ACID TABLET (FP) PO SCH (09:48)
[2020-12-28] MEDS: NICOTINE 21 MG/24 HOURS TOPICAL PATCH TD SCH (09:48)
[2020-12-28] MEDS: PANTOPRAZOLE 40 MG TABLET PO SCH (09:49)
[2020-12-28] MEDS: THIAMINE HCL 100 MG TABLET (FP) PO SCH (21:33)
[2020-12-28] MEDS: traZODone HCL 100 MG TABLET (FP) PO SCH (21:34)
[2020-12-29] MEDS: METHADONE HCL 40 MG DISPERSABLE TABLET PO SCH (06:33)
[2020-12-29] MEDS: busPIRone HCL 10 MG TABLET (FP) PO SCH ×3 (06:34→21:06)
[2020-12-29] MEDS: VENLAFAXINE HCL 150 MG E.R. CAPSULE PO SCH (07:09)
[2020-12-29] MEDS: NICOTINE 21 MG/24 HOURS TOPICAL PATCH TD SCH (10:04)
[2020-12-29] MEDS: PANTOPRAZOLE 40 MG TABLET PO SCH (10:04)
[2020-12-29] MEDS: PRENATAL VITAMINS W/ FOLIC ACID TABLET (FP) PO SCH (10:04)
[2020-12-29] MEDS: THIAMINE HCL 100 MG TABLET (FP) PO SCH (21:06)
[2020-12-29] MEDS: traZODone HCL 50 MG TABLET (FP) PO SCH (22:01)
[2020-12-30] MEDS: METHADONE HCL 40 MG DISPERSABLE TABLET PO SCH (06:19)
[2020-12-30] MEDS: busPIRone HCL 10 MG TABLET (FP) PO SCH ×3 (06:19→21:09)
[2020-12-30] MEDS: VENLAFAXINE HCL 150 MG E.R. CAPSULE PO SCH (08:25)
[2020-12-30] MEDS: PRENATAL VITAMINS W/ FOLIC ACID TABLET (FP) PO SCH (10:24)
[2020-12-30] MEDS: PANTOPRAZOLE 40 MG TABLET PO SCH (10:25)
[2020-12-30] MEDS: NICOTINE 21 MG/24 HOURS TOPICAL PATCH TD SCH (10:25)
[2020-12-30] MEDS: THIAMINE HCL 100 MG TABLET (FP) PO SCH (21:10)
[2020-12-30] MEDS: traZODone HCL 50 MG TABLET (FP) PO SCH (21:10)
[2020-12-31] MEDS: busPIRone HCL 10 MG TABLET (FP) PO SCH ×3 (06:52→21:09)
[2020-12-31] MEDS: METHADONE HCL 40 MG DISPERSABLE TABLET PO SCH (06:52)
[2020-12-31] MEDS: IBUPROFEN 400 MG TABLET (FP) PO PRN (06:53)
[2020-12-31] MEDS: VENLAFAXINE HCL 150 MG E.R. CAPSULE PO SCH (07:12)
[2020-12-31] MEDS: PANTOPRAZOLE 40 MG TABLET PO SCH (10:29)
[2020-12-31] MEDS: PRENATAL VITAMINS W/ FOLIC ACID TABLET (FP) PO SCH (10:29)
[2020-12-31] MEDS: NICOTINE 21 MG/24 HOURS TOPICAL PATCH TD SCH (10:29)
[2020-12-31] MEDS: THIAMINE HCL 100 MG TABLET (FP) PO SCH (21:09)
[2020-12-31] MEDS: traZODone HCL 50 MG TABLET (FP) PO SCH (21:09)
[2021-01-01] MEDS: busPIRone HCL 10 MG TABLET (FP) PO SCH ×3 (06:04→21:05)
[2021-01-01] MEDS: METHADONE HCL 40 MG DISPERSABLE TABLET PO SCH (06:04)
[2021-01-01] MEDS: IBUPROFEN 400 MG TABLET (FP) PO PRN ×2 (06:05→21:06)
[2021-01-01] MEDS: VENLAFAXINE HCL 150 MG E.R. CAPSULE PO SCH (07:20)
[2021-01-01] MEDS: PRENATAL VITAMINS W/ FOLIC ACID TABLET (FP) PO SCH (09:13)
[2021-01-01] MEDS: PANTOPRAZOLE 40 MG TABLET PO SCH (09:13)
[2021-01-01] MEDS: NICOTINE 21 MG/24 HOURS TOPICAL PATCH TD SCH ×2 (09:13→09:14)
[2021-01-01] MEDS: traZODone HCL 50 MG TABLET (FP) PO SCH (21:05)
[2021-01-01] MEDS: THIAMINE HCL 100 MG TABLET (FP) PO SCH (21:05)
[2021-01-02] MEDS: busPIRone HCL 10 MG TABLET (FP) PO SCH ×3 (06:23→21:33)
[2021-01-02] MEDS: METHADONE HCL 40 MG DISPERSABLE TABLET PO SCH (06:23)
[2021-01-02] MEDS: VENLAFAXINE HCL 150 MG E.R. CAPSULE PO SCH (07:03)
[2021-01-02] MEDS: PANTOPRAZOLE 40 MG TABLET PO SCH (09:54)
[2021-01-02] MEDS: PRENATAL VITAMINS W/ FOLIC ACID TABLET (FP) PO SCH (09:54)
[2021-01-02] MEDS: NICOTINE 21 MG/24 HOURS TOPICAL PATCH TD SCH (09:55)
[2021-01-02] MEDS: THIAMINE HCL 100 MG TABLET (FP) PO SCH (21:33)
[2021-01-02] MEDS: traZODone HCL 50 MG TABLET (FP) PO SCH (21:33)
[2021-01-03] MEDS ORDERED: METHADONE HCL 10 MG TABLET PO SCH (06:00)
[2021-01-03] MEDS: busPIRone HCL 10 MG TABLET (FP) PO SCH ×3 (06:10→21:08)
[2021-01-03] MEDS: METHADONE HCL 40 MG DISPERSABLE TABLET PO SCH (06:10)
[2021-01-03] MEDS: IBUPROFEN 400 MG TABLET (FP) PO PRN ×2 (06:12→21:09)
[2021-01-03] MEDS: VENLAFAXINE HCL 150 MG E.R. CAPSULE PO SCH (08:02)
[2021-01-03] MEDS: PANTOPRAZOLE 40 MG TABLET PO SCH (10:02)
[2021-01-03] MEDS: NICOTINE 21 MG/24 HOURS TOPICAL PATCH TD SCH (10:02)
[2021-01-03] MEDS: PRENATAL VITAMINS W/ FOLIC ACID TABLET (FP) PO SCH (10:02)
[2021-01-03] MEDS: THIAMINE HCL 100 MG TABLET (FP) PO SCH (21:08)
[2021-01-03] MEDS: traZODone HCL 50 MG TABLET (FP) PO SCH (21:08)
[2021-01-04] MEDS ORDERED: MASKS NR ONE ×2 (05:53→06:06)
[2021-01-04] MEDS: METHADONE HCL 40 MG DISPERSABLE TABLET PO SCH (06:06)
[2021-01-04] MEDS: busPIRone HCL 10 MG TABLET (FP) PO SCH ×3 (06:06→21:45)
[2021-01-04] MEDS: IBUPROFEN 400 MG TABLET (FP) PO PRN ×2 (06:07→13:36)
[2021-01-04] MEDS: VENLAFAXINE HCL 150 MG E.R. CAPSULE PO SCH (07:05)
[2021-01-04] MEDS: NICOTINE 21 MG/24 HOURS TOPICAL PATCH TD SCH (09:44)
[2021-01-04] MEDS: PANTOPRAZOLE 40 MG TABLET PO SCH (09:44)
[2021-01-04] MEDS: PRENATAL VITAMINS W/ FOLIC ACID TABLET (FP) PO SCH (09:44)
[2021-01-04] MEDS: THIAMINE HCL 100 MG TABLET (FP) PO SCH (21:45)
[2021-01-04] MEDS: traZODone HCL 50 MG TABLET (FP) PO SCH (21:45)
[2021-01-05] MEDS: busPIRone HCL 10 MG TABLET (FP) PO SCH (06:17)
[2021-01-05] MEDS: IBUPROFEN 400 MG TABLET (FP) PO PRN (06:18)
[2021-01-05] MEDS: METHADONE HCL 40 MG DISPERSABLE TABLET PO SCH (06:18)
[2021-01-05 06:59] VITALS: BP 121/74; PULSE 70; TEMP 98.6
[2021-01-05] MEDS: VENLAFAXINE HCL 150 MG E.R. CAPSULE PO SCH (07:16)
[2021-01-05] MEDS ORDERED: PT OWN MED DRAWER 7, Y5N ONE (09:19)
[2021-01-05] MEDS: NICOTINE 21 MG/24 HOURS TOPICAL PATCH TD SCH (09:21)
[2021-01-05] MEDS: PRENATAL VITAMINS W/ FOLIC ACID TABLET (FP) PO SCH (09:21)
[2021-01-05] MEDS: PANTOPRAZOLE 40 MG TABLET PO SCH (09:21)
== END 2021-01-05 09:25 | disposition home or self-care (01) | DRG 772 ==
LOC: YASAS 12:24 → UNDOADMIN 20:03 → Y3W 20:03 → UNDODISIN 01-01 09:45 → Y3W 01-01 12:58
PROVIDERS: ADMIT Allergy & Immunology; ATTEND Allergy & Immunology
PROC: HZ42ZZZ Group Counseling for Substance Abuse Treatment, Cognitive-Behavioral (ICD-10-PCS; principal; 2020-12-18)
DX: F10.20 Alcohol dependence, uncomplicated (principal); F11.20 Opioid dependence, uncomplicated; F13.20 Sedative, hypnotic or anxiolytic dependence, uncomplicated; F14.20 Cocaine dependence, uncomplicated; F17.210 Nicotine dependence, cigarettes, uncomplicated; F19.282 Other psychoactive substance dependence with psychoactive substance-induced sleep disorder; F19.280 Other psychoactive substance dependence with psychoactive substance-induced anxiety disorder; F19.24 Other psychoactive substance dependence with psychoactive substance-induced mood disorder; F32.9 Major depressive disorder, single episode, unspecified; J45.909 Unspecified asthma, uncomplicated; K21.9 Gastro-esophageal reflux disease without esophagitis; B18.2 Chronic viral hepatitis C; K08.89 Other specified disorders of teeth and supporting structures; M54.5 Low back pain; G89.29 Other chronic pain
CPT/HCPCS: 36415; 80053; 81003; 82962; 85027; 86780; 93005; 93010; C9803; U0003; U0005

== ENCOUNTER 2021-01-31 12:09 | Inpatient (IN) | payer OTHER ==
[2021-01-31 14:18] VITALS: BMI 27.7
[2021-01-31] MEDS ORDERED: MAG HYDROX/AL HYDROX/SIMETH 30 ML UNIT-DOSE CUP PO PRN (15:48)
[2021-01-31] MEDS ORDERED: NICOTINE POLACRILEX 2 MG GUM BUC PRN (15:48)
[2021-01-31] MEDS ORDERED: MAGNESIUM CITRATE 300 ML BOTTLE PO PRN (15:48)
[2021-01-31] MEDS ORDERED: hydrOXYzine PAMOATE 25 MG CAPSULE (FP) PO PRN (15:48)
[2021-01-31] MEDS ORDERED: MAGNESIUM HYDROX 2400MG/30ML ORAL SUSPENSION 30 ML CUP PO PRN (15:48)
[2021-01-31] MEDS ORDERED: ACETAMINOPHEN 325 MG TABLET (FP) PO PRN (15:48)
[2021-01-31] MEDS ORDERED: MENTHOL/PHENOL 1 EACH UD MM PRN (15:48)
[2021-01-31] MEDS ORDERED: ONDANSETRON *ODT* 4 MG TABLET SL PRN (15:48)
[2021-01-31] MEDS ORDERED: BISMUTH SUBSALICYLATE 524 MG/30 ML PO PRN (15:48)
[2021-01-31] MEDS ORDERED: diazePAM 5 MG TABLET PO PRN (15:50)
[2021-01-31] MEDS ORDERED: diazePAM 5 MG TABLET PO ONE (15:50)
[2021-01-31] MEDS: diazePAM 5 MG TABLET PO SCH ×2 (20:36→23:01)
[2021-01-31] MEDS: MELATONIN 5 MG TABLETS PO SCH (23:01)
[2021-01-31] MEDS: THIAMINE HCL 100 MG TABLET (FP) PO SCH (23:02)
[2021-01-31] MEDS: IBUPROFEN 400 MG TABLET (FP) PO PRN (23:03)
[2021-02-01] MEDS: diazePAM 5 MG TABLET PO SCH (06:00)
[2021-02-01] MEDS: METHOCARBAMOL 500 MG TABLET PO PRN ×2 (09:26→22:47)
[2021-02-01] MEDS: IBUPROFEN 400 MG TABLET (FP) PO PRN ×2 (09:26→18:16)
[2021-02-01] MEDS ORDERED: methaDONE HCL 40 MG DISPERSABLE TABLET PO ONE ×2 (11:00→18:00)
[2021-02-01] MEDS ORDERED: diazePAM 5 MG TABLET PO SCH (11:00)
[2021-02-01 11:47] LABS: HEMATOCRIT 33.6 % (35.4-49); HEMOGLOBIN 10.9 GM/dL (11.7-16.9); MCH 29.6 pg (25.7-33.7); MCHC 32.5 g/dl (32.0-35.9); MEAN CELL VOLUME 90.9 fl (80-96); MEAN PLT VOLUME 8.1 fl (7.5-11.1); PLATELET COUNT 230 10^3/uL (134-434); RBC 3.69 M/mm3 (4.00-5.60); RDW 14.8 % (11.9-15.9); WHITE BLOOD COUNT 8.6 K/mm3 (4.0-10.0)
[2021-02-01 12:05] LABS: ALBUMIN 2.9 g/dl (3.4-5.0); BLOOD UREA NITROGEN 6.8 mg/dL (7-18)
[2021-02-01 12:08] LABS: CREATININE 0.6 mg/dL (0.55-1.3)
[2021-02-01 12:10] LABS: BILIRUBIN,TOTAL 0.4 mg/dL (0.2-1); TOT PROT 5.9 g/dl (6.4-8.2)
[2021-02-01] MEDS: PRENATAL VITAMINS W/ FOLIC ACID TABLET (FP) PO SCH (12:16)
[2021-02-01] MEDS: busPIRone HCL 10 MG TABLET (FP) PO SCH ×2 (13:27→22:45)
[2021-02-01] MEDS ORDERED: diazePAM 5 MG TABLET PO PRN (15:50)
[2021-02-01] MEDS ORDERED: ALBUTEROL SO4 HFA INHALER IH ONE (20:55)
[2021-02-01] MEDS ORDERED: ALBUTEROL SO4 HFA INHALER IH PRN (21:10)
[2021-02-01] MEDS: traZODone HCL 100 MG TABLET (FP) PO SCH (22:38)
[2021-02-01] MEDS: THIAMINE HCL 100 MG TABLET (FP) PO SCH (22:38)
[2021-02-01] MEDS: MELATONIN 5 MG TABLETS PO SCH (22:46)
[2021-02-02] MEDS: methaDONE HCL 40 MG DISPERSABLE TABLET PO SCH (05:57)
[2021-02-02] MEDS: diazePAM 5 MG TABLET PO SCH ×3 (06:02→21:16)
[2021-02-02] MEDS: IBUPROFEN 400 MG TABLET (FP) PO PRN (06:13)
[2021-02-02] MEDS: busPIRone HCL 10 MG TABLET (FP) PO SCH ×3 (06:56→21:17)
[2021-02-02] MEDS: PRENATAL VITAMINS W/ FOLIC ACID TABLET (FP) PO SCH (10:07)
[2021-02-02] MEDS: FAMOTIDINE 20 MG TABLET PO SCH ×2 (10:08→21:14)
[2021-02-02] MEDS: NAPROXEN 375 MG TABLET PO SCH ×2 (11:22→21:14)
[2021-02-02] MEDS: VENLAFAXINE HCL 150 MG E.R. CAPSULE PO SCH (11:23)
[2021-02-02] MEDS: METHOCARBAMOL 500 MG TABLET PO PRN (13:40)
[2021-02-02] MEDS: THIAMINE HCL 100 MG TABLET (FP) PO SCH (21:16)
[2021-02-02] MEDS: traZODone HCL 100 MG TABLET (FP) PO SCH (21:17)
[2021-02-02] MEDS: MELATONIN 5 MG TABLETS PO SCH (22:47)
[2021-02-03] MEDS: methaDONE HCL 40 MG DISPERSABLE TABLET PO SCH (05:37)
[2021-02-03] MEDS: diazePAM 5 MG TABLET PO SCH ×2 (05:38→17:16)
[2021-02-03] MEDS: busPIRone HCL 10 MG TABLET (FP) PO SCH ×3 (05:38→22:30)
[2021-02-03] MEDS ORDERED: diazePAM 5 MG TABLET PO SCH ×2 (06:00→11:00)
[2021-02-03] MEDS: NAPROXEN 375 MG TABLET PO SCH ×2 (10:12→22:30)
[2021-02-03] MEDS: VENLAFAXINE HCL 150 MG E.R. CAPSULE PO SCH (10:12)
[2021-02-03] MEDS: FAMOTIDINE 20 MG TABLET PO SCH ×2 (10:12→22:30)
[2021-02-03] MEDS: PRENATAL VITAMINS W/ FOLIC ACID TABLET (FP) PO SCH (10:13)
[2021-02-03] MEDS: ACETAMINOPHEN 325 MG TABLET (FP) PO PRN (13:28)
[2021-02-03] MEDS: traZODone HCL 100 MG TABLET (FP) PO SCH (22:30)
[2021-02-03] MEDS: MELATONIN 5 MG TABLETS PO SCH (22:30)
[2021-02-03] MEDS: THIAMINE HCL 100 MG TABLET (FP) PO SCH (22:30)
[2021-02-04] MEDS: ACETAMINOPHEN 325 MG TABLET (FP) PO PRN (01:37)
[2021-02-04] MEDS: methaDONE HCL 40 MG DISPERSABLE TABLET PO SCH (05:42)
[2021-02-04] MEDS: busPIRone HCL 10 MG TABLET (FP) PO SCH ×2 (05:43→13:10)
[2021-02-04] MEDS ORDERED: diazePAM 5 MG TABLET PO ONE (06:00)
[2021-02-04] MEDS: PRENATAL VITAMINS W/ FOLIC ACID TABLET (FP) PO SCH (10:01)
[2021-02-04] MEDS: FAMOTIDINE 20 MG TABLET PO SCH (10:01)
[2021-02-04] MEDS: VENLAFAXINE HCL 150 MG E.R. CAPSULE PO SCH (10:02)
[2021-02-04] MEDS: NAPROXEN 375 MG TABLET PO SCH (12:02)
[2021-02-04 14:26] VITALS: BP 116/61; PULSE 78; TEMP 97.8
== END 2021-02-04 14:26 | disposition other institution (70) | DRG 773 ==
LOC: YASAS 12:09 → Y6N 17:38 → UNDOADMIN 17:38 → Y6N 02-01 19:19
PROVIDERS: ADMIT Allergy & Immunology; ATTEND Allergy & Immunology
PROC: HZ2ZZZZ Detoxification Services for Substance Abuse Treatment (ICD-10-PCS; principal; 2021-01-31)
DX: F10.230 Alcohol dependence with withdrawal, uncomplicated (principal); F13.230 Sedative, hypnotic or anxiolytic dependence with withdrawal, uncomplicated; F11.20 Opioid dependence, uncomplicated; F14.20 Cocaine dependence, uncomplicated; F17.210 Nicotine dependence, cigarettes, uncomplicated; F19.282 Other psychoactive substance dependence with psychoactive substance-induced sleep disorder; F19.24 Other psychoactive substance dependence with psychoactive substance-induced mood disorder; F43.10 Post-traumatic stress disorder, unspecified; F41.8 Other specified anxiety disorders; B19.20 Unspecified viral hepatitis C without hepatic coma; J45.909 Unspecified asthma, uncomplicated; K21.9 Gastro-esophageal reflux disease without esophagitis; M54.5 Low back pain; G89.29 Other chronic pain; Z91.5 Personal history of self-harm; Z56.0 Unemployment, unspecified; Z59.0 Homelessness
CPT/HCPCS: 36415; 71046-TC-FY; 80053; 85027; 86780; 93005; 93010; C9803; U0003; U0005

== ENCOUNTER 2021-04-25 12:05 | Inpatient (IN) | payer OTHER ==
[2021-04-25 14:07] VITALS: BMI 25.4
[2021-04-25] MEDS ORDERED: diazePAM 5 MG TABLET PO PRN (14:31)
[2021-04-25] MEDS ORDERED: ONDANSETRON *ODT* 4 MG TABLET SL PRN (14:31)
[2021-04-25] MEDS ORDERED: MAGNESIUM CITRATE 300 ML BOTTLE PO PRN (14:31)
[2021-04-25] MEDS ORDERED: NICOTINE POLACRILEX 2 MG GUM BUC PRN (14:31)
[2021-04-25] MEDS ORDERED: METHOCARBAMOL 500 MG TABLET PO PRN (14:31)
[2021-04-25] MEDS ORDERED: MAG HYDROX/AL HYDROX/SIMETH 30 ML UNIT-DOSE CUP PO PRN (14:31)
[2021-04-25] MEDS ORDERED: NICOTINE 10 MG CARTRIDGE (INHALER) IH PRN (14:31)
[2021-04-25] MEDS ORDERED: MENTHOL/PHENOL 1 EACH UD MM PRN (14:31)
[2021-04-25] MEDS ORDERED: MAGNESIUM HYDROX 2400MG/30ML ORAL SUSPENSION 30 ML CUP PO PRN (14:31)
[2021-04-25] MEDS ORDERED: IBUPROFEN 400 MG TABLET (FP) PO PRN (14:31)
[2021-04-25] MEDS ORDERED: BISMUTH SUBSALICYLATE 524 MG/30 ML PO PRN (14:31)
[2021-04-25] MEDS ORDERED: ACETAMINOPHEN 325 MG TABLET (FP) PO PRN ×2 (14:31)
[2021-04-25] MEDS: diazePAM 5 MG TABLET PO SCH ×2 (17:50→22:36)
[2021-04-25] MEDS: hydrOXYzine PAMOATE 25 MG CAPSULE (FP) PO SCH ×2 (18:17→22:33)
[2021-04-25] MEDS: THIAMINE HCL 100 MG TABLET (FP) PO SCH (22:33)
[2021-04-25] MEDS: MELATONIN 5 MG TABLETS PO SCH (22:33)
[2021-04-26] MEDS: diazePAM 5 MG TABLET PO SCH ×4 (05:43→22:35)
[2021-04-26] MEDS: hydrOXYzine PAMOATE 25 MG CAPSULE (FP) PO SCH (05:58)
[2021-04-26] MEDS ORDERED: hydrOXYzine PAMOATE 25 MG CAPSULE (FP) PO PRN (08:36)
[2021-04-26] MEDS: NICOTINE 21 MG/24 HOURS TOPICAL PATCH TD SCH (10:52)
[2021-04-26] MEDS: PRENATAL VITAMINS W/ FOLIC ACID TABLET (FP) PO SCH (10:52)
[2021-04-26 13:17] LABS: HEMATOCRIT 35.7 % (35.4-49); HEMOGLOBIN 11.9 GM/dL (11.7-16.9); MCHC 33.3 g/dl (32.0-35.9); MEAN CELL VOLUME 90.2 fl (80-96); MEAN PLT VOLUME 7.8 fl (7.5-11.1); PLATELET COUNT 234 10^3/uL (134-434); RBC 3.96 M/mm3 (4.00-5.60); RDW 14.3 % (11.9-15.9); WHITE BLOOD COUNT 4.5 K/mm3 (4.0-10.0)
[2021-04-26 13:22] LABS: ALBUMIN 2.9 g/dl (3.4-5.0); BLOOD UREA NITROGEN 11.8 mg/dL (7-18); CALCIUM 8.3 mg/dL (8.5-10.1)
[2021-04-26 13:25] LABS: CREATININE 0.8 mg/dL (0.55-1.3)
[2021-04-26 13:27] LABS: BILIRUBIN,TOTAL 0.3 mg/dL (0.2-1); TOT PROT 6.2 g/dl (6.4-8.2)
[2021-04-26] MEDS ORDERED: methaDONE HCL 40 MG DISPERSABLE TABLET PO ONE (13:45)
[2021-04-26] MEDS: MELATONIN 5 MG TABLETS PO SCH (22:35)
[2021-04-26] MEDS: THIAMINE HCL 100 MG TABLET (FP) PO SCH (22:35)
[2021-04-27] MEDS: methaDONE HCL 40 MG DISPERSABLE TABLET PO SCH (05:29)
[2021-04-27] MEDS: diazePAM 5 MG TABLET PO SCH ×3 (05:29→22:28)
[2021-04-27] MEDS: NICOTINE 21 MG/24 HOURS TOPICAL PATCH TD SCH (10:18)
[2021-04-27] MEDS: PRENATAL VITAMINS W/ FOLIC ACID TABLET (FP) PO SCH (10:18)
[2021-04-27] MEDS: THIAMINE HCL 100 MG TABLET (FP) PO SCH (22:28)
[2021-04-27] MEDS: MELATONIN 5 MG TABLETS PO SCH (22:28)
[2021-04-28] MEDS: diazePAM 5 MG TABLET PO SCH ×2 (05:11→17:56)
[2021-04-28] MEDS: methaDONE HCL 40 MG DISPERSABLE TABLET PO SCH (05:12)
[2021-04-28] MEDS: PRENATAL VITAMINS W/ FOLIC ACID TABLET (FP) PO SCH (10:13)
[2021-04-28] MEDS: NICOTINE 21 MG/24 HOURS TOPICAL PATCH TD SCH (10:13)
[2021-04-28] MEDS: VENLAFAXINE HCL 150 MG E.R. CAPSULE PO SCH (13:55)
[2021-04-28] MEDS: busPIRone HCL 10 MG TABLET (FP) PO SCH ×2 (13:55→22:26)
[2021-04-28] MEDS ORDERED: traZODone HCL 50 MG TABLET (FP) PO PRN (22:00)
[2021-04-28] MEDS: THIAMINE HCL 100 MG TABLET (FP) PO SCH (22:26)
[2021-04-28] MEDS: MELATONIN 5 MG TABLETS PO SCH (22:26)
[2021-04-29] MEDS: methaDONE HCL 40 MG DISPERSABLE TABLET PO SCH (05:24)
[2021-04-29] MEDS: busPIRone HCL 10 MG TABLET (FP) PO SCH (05:25)
[2021-04-29] MEDS ORDERED: diazePAM 5 MG TABLET PO ONE (06:00)
[2021-04-29 09:22] VITALS: BP 107/74; PULSE 72; TEMP 96.4
[2021-04-29] MEDS: NICOTINE 21 MG/24 HOURS TOPICAL PATCH TD SCH (10:19)
[2021-04-29] MEDS: PRENATAL VITAMINS W/ FOLIC ACID TABLET (FP) PO SCH (10:19)
[2021-04-29] MEDS: VENLAFAXINE HCL 150 MG E.R. CAPSULE PO SCH (10:19)
== END 2021-04-29 12:35 | disposition other institution (70) | DRG 773 ==
LOC: YASAS 12:05 → Y3N 15:12
PROVIDERS: ADMIT Allergy & Immunology; ATTEND Allergy & Immunology
PROC: HZ2ZZZZ Detoxification Services for Substance Abuse Treatment (ICD-10-PCS; principal; 2021-04-25)
DX: F10.230 Alcohol dependence with withdrawal, uncomplicated (principal); F13.230 Sedative, hypnotic or anxiolytic dependence with withdrawal, uncomplicated; F11.20 Opioid dependence, uncomplicated; F14.20 Cocaine dependence, uncomplicated; F43.10 Post-traumatic stress disorder, unspecified; F19.24 Other psychoactive substance dependence with psychoactive substance-induced mood disorder; F41.8 Other specified anxiety disorders; G47.00 Insomnia, unspecified; J45.909 Unspecified asthma, uncomplicated; K21.9 Gastro-esophageal reflux disease without esophagitis; M54.50 Low back pain, unspecified; G89.29 Other chronic pain; B18.2 Chronic viral hepatitis C; Z86.59 Personal history of other mental and behavioral disorders; Z86.19 Personal history of other infectious and parasitic diseases
CPT/HCPCS: 36415; 80053; 85027; 86780; 93005; 93010; C9803; U0003; U0005

== ENCOUNTER 2021-04-29 13:00 | Inpatient (IN) | payer OTHER ==
[2021-04-29] MEDS ORDERED: MAGNESIUM HYDROX 2400MG/30ML ORAL SUSPENSION 30 ML CUP PO PRN (15:13)
[2021-04-29] MEDS ORDERED: MENTHOL/PHENOL 1 EACH UD MM PRN (15:13)
[2021-04-29] MEDS ORDERED: MAGNESIUM CITRATE 300 ML BOTTLE PO PRN (15:13)
[2021-04-29] MEDS ORDERED: ACETAMINOPHEN 325 MG TABLET (FP) PO PRN (15:13)
[2021-04-29] MEDS ORDERED: P-EPHED 60MG/TRIPROLIDI 2.5MG TABLET PO PRN (15:13)
[2021-04-29] MEDS ORDERED: guaiFENesin 200 MG/10 ML 10 ML UNIT-DOSE CUPS PO PRN (15:13)
[2021-04-29] MEDS ORDERED: LOPERAMIDE HCL 2 MG CAPSULE PO PRN (15:13)
[2021-04-29] MEDS ORDERED: MAG HYDROX/AL HYDROX/SIMETH 30 ML UNIT-DOSE CUP PO PRN (15:13)
[2021-04-29] MEDS ORDERED: IBUPROFEN 400 MG TABLET (FP) PO PRN (15:13)
[2021-04-29] MEDS ORDERED: ALBUTEROL SO4 HFA INHALER IH PRN (15:14)
[2021-04-29] MEDS: hydrOXYzine PAMOATE 25 MG CAPSULE (FP) PO PRN (21:41)
[2021-04-29] MEDS: busPIRone HCL 10 MG TABLET (FP) PO SCH (21:42)
[2021-04-29] MEDS: THIAMINE HCL 100 MG TABLET (FP) PO SCH (21:42)
[2021-04-29] MEDS: MELATONIN 5 MG TABLETS PO SCH (21:42)
[2021-04-29] MEDS: traZODone HCL 50 MG TABLET (FP) PO PRN (21:43)
[2021-04-30] MEDS: busPIRone HCL 10 MG TABLET (FP) PO SCH ×3 (06:10→21:36)
[2021-04-30] MEDS: methaDONE HCL 40 MG DISPERSABLE TABLET PO SCH (06:11)
[2021-04-30] MEDS ORDERED: PT OWN MED DRAWER 7, Y5N ONE (08:50)
[2021-04-30] MEDS: hydrOXYzine PAMOATE 25 MG CAPSULE (FP) PO PRN ×2 (10:17→21:36)
[2021-04-30] MEDS: NICOTINE 7 MG/24 HOURS TOPICAL PATCH TD SCH (10:17)
[2021-04-30] MEDS: PRENATAL VITAMINS W/ FOLIC ACID TABLET (FP) PO SCH (10:17)
[2021-04-30] MEDS ORDERED: FLU VACC QS2021-22(6MOS UP)/PF 60 MCG/0.5 ML SYRINGE IM ONE (12:00)
[2021-04-30] MEDS: VENLAFAXINE HCL 150 MG E.R. CAPSULE PO SCH (12:06)
[2021-04-30] MEDS: FAMOTIDINE 20 MG TABLET PO SCH ×2 (12:07→21:36)
[2021-04-30] MEDS: MELATONIN 5 MG TABLETS PO SCH (21:36)
[2021-04-30] MEDS: traZODone HCL 50 MG TABLET (FP) PO PRN (21:36)
[2021-04-30] MEDS: THIAMINE HCL 100 MG TABLET (FP) PO SCH (21:36)
[2021-05-01] MEDS: methaDONE HCL 40 MG DISPERSABLE TABLET PO SCH (06:09)
[2021-05-01] MEDS: busPIRone HCL 10 MG TABLET (FP) PO SCH ×3 (06:09→21:40)
[2021-05-01] MEDS ORDERED: PT OWN MED DRAWER 7, Y5N ONE (08:14)
[2021-05-01] MEDS: PRENATAL VITAMINS W/ FOLIC ACID TABLET (FP) PO SCH (09:54)
[2021-05-01] MEDS: NICOTINE 10 MG CARTRIDGE (INHALER) IH PRN (09:54)
[2021-05-01] MEDS: NICOTINE 7 MG/24 HOURS TOPICAL PATCH TD SCH (09:54)
[2021-05-01] MEDS: FAMOTIDINE 20 MG TABLET PO SCH ×2 (09:55→21:40)
[2021-05-01] MEDS: VENLAFAXINE HCL 150 MG E.R. CAPSULE PO SCH (09:55)
[2021-05-01] MEDS: THIAMINE HCL 100 MG TABLET (FP) PO SCH (21:40)
[2021-05-01] MEDS: MELATONIN 5 MG TABLETS PO SCH (21:40)
[2021-05-02] MEDS: busPIRone HCL 10 MG TABLET (FP) PO SCH ×3 (06:14→21:31)
[2021-05-02] MEDS: methaDONE HCL 40 MG DISPERSABLE TABLET PO SCH (06:14)
[2021-05-02] MEDS: VENLAFAXINE HCL 150 MG E.R. CAPSULE PO SCH (09:56)
[2021-05-02] MEDS: FAMOTIDINE 20 MG TABLET PO SCH ×2 (09:56→21:31)
[2021-05-02] MEDS: NICOTINE 7 MG/24 HOURS TOPICAL PATCH TD SCH (09:56)
[2021-05-02] MEDS: PRENATAL VITAMINS W/ FOLIC ACID TABLET (FP) PO SCH (09:56)
[2021-05-02] MEDS: hydrOXYzine PAMOATE 25 MG CAPSULE (FP) PO PRN ×2 (09:56→21:31)
[2021-05-02] MEDS: MELATONIN 5 MG TABLETS PO SCH (21:31)
[2021-05-02] MEDS: traZODone HCL 50 MG TABLET (FP) PO PRN (21:31)
[2021-05-02] MEDS: THIAMINE HCL 100 MG TABLET (FP) PO SCH (21:31)
[2021-05-03] MEDS: methaDONE HCL 40 MG DISPERSABLE TABLET PO SCH (06:16)
[2021-05-03] MEDS: busPIRone HCL 10 MG TABLET (FP) PO SCH ×3 (06:16→21:30)
[2021-05-03] MEDS: PRENATAL VITAMINS W/ FOLIC ACID TABLET (FP) PO SCH (09:55)
[2021-05-03] MEDS: VENLAFAXINE HCL 150 MG E.R. CAPSULE PO SCH (09:55)
[2021-05-03] MEDS: NICOTINE 7 MG/24 HOURS TOPICAL PATCH TD SCH (09:55)
[2021-05-03] MEDS: FAMOTIDINE 20 MG TABLET PO SCH ×2 (09:55→21:30)
[2021-05-03] MEDS: NAPROXEN 500 MG TABLET PO PRN ×2 (09:55→21:30)
[2021-05-03] MEDS: NICOTINE 10 MG CARTRIDGE (INHALER) IH PRN (09:56)
[2021-05-03] MEDS: THIAMINE HCL 100 MG TABLET (FP) PO SCH (21:30)
[2021-05-03] MEDS: traZODone HCL 50 MG TABLET (FP) PO PRN (21:30)
[2021-05-03] MEDS: hydrOXYzine PAMOATE 25 MG CAPSULE (FP) PO PRN (21:30)
[2021-05-03] MEDS: MELATONIN 5 MG TABLETS PO SCH (21:30)
[2021-05-04] MEDS: busPIRone HCL 10 MG TABLET (FP) PO SCH ×3 (06:09→21:57)
[2021-05-04] MEDS: methaDONE HCL 40 MG DISPERSABLE TABLET PO SCH (06:09)
[2021-05-04] MEDS: VENLAFAXINE HCL 150 MG E.R. CAPSULE PO SCH (10:04)
[2021-05-04] MEDS: PRENATAL VITAMINS W/ FOLIC ACID TABLET (FP) PO SCH (10:04)
[2021-05-04] MEDS: FAMOTIDINE 20 MG TABLET PO SCH ×2 (10:04→21:55)
[2021-05-04] MEDS: NAPROXEN 500 MG TABLET PO PRN (10:05)
[2021-05-04] MEDS: NICOTINE 7 MG/24 HOURS TOPICAL PATCH TD SCH (10:05)
[2021-05-04] MEDS: THIAMINE HCL 100 MG TABLET (FP) PO SCH (21:55)
[2021-05-04] MEDS: MELATONIN 5 MG TABLETS PO SCH (21:55)
[2021-05-05] MEDS: busPIRone HCL 10 MG TABLET (FP) PO SCH ×3 (05:57→21:45)
[2021-05-05] MEDS: methaDONE HCL 40 MG DISPERSABLE TABLET PO SCH (05:57)
[2021-05-05] MEDS ORDERED: PT OWN MED DRAWER 7, Y5N ONE (08:23)
[2021-05-05] MEDS: NICOTINE 7 MG/24 HOURS TOPICAL PATCH TD SCH (09:41)
[2021-05-05] MEDS: PRENATAL VITAMINS W/ FOLIC ACID TABLET (FP) PO SCH (09:41)
[2021-05-05] MEDS: VENLAFAXINE HCL 150 MG E.R. CAPSULE PO SCH (09:42)
[2021-05-05] MEDS: FAMOTIDINE 20 MG TABLET PO SCH ×2 (09:42→21:45)
[2021-05-05] MEDS: MELATONIN 5 MG TABLETS PO SCH (21:45)
[2021-05-05] MEDS: traZODone HCL 50 MG TABLET (FP) PO PRN (21:45)
[2021-05-05] MEDS: THIAMINE HCL 100 MG TABLET (FP) PO SCH (21:45)
[2021-05-06] MEDS: busPIRone HCL 10 MG TABLET (FP) PO SCH ×3 (05:52→21:02)
[2021-05-06] MEDS: methaDONE HCL 40 MG DISPERSABLE TABLET PO SCH (05:52)
[2021-05-06] MEDS: NICOTINE 7 MG/24 HOURS TOPICAL PATCH TD SCH (09:32)
[2021-05-06] MEDS: FAMOTIDINE 20 MG TABLET PO SCH ×2 (09:32→21:03)
[2021-05-06] MEDS: VENLAFAXINE HCL 150 MG E.R. CAPSULE PO SCH (09:32)
[2021-05-06] MEDS: NICOTINE 10 MG CARTRIDGE (INHALER) IH PRN (09:32)
[2021-05-06] MEDS: PRENATAL VITAMINS W/ FOLIC ACID TABLET (FP) PO SCH (09:32)
[2021-05-06] MEDS: hydrOXYzine PAMOATE 25 MG CAPSULE (FP) PO PRN (21:02)
[2021-05-06] MEDS: traZODone HCL 50 MG TABLET (FP) PO PRN (21:02)
[2021-05-06] MEDS: NAPROXEN 500 MG TABLET PO PRN (21:02)
[2021-05-06] MEDS: MELATONIN 5 MG TABLETS PO SCH (21:03)
[2021-05-06] MEDS: THIAMINE HCL 100 MG TABLET (FP) PO SCH (21:03)
[2021-05-07] MEDS: methaDONE HCL 40 MG DISPERSABLE TABLET PO SCH (06:01)
[2021-05-07] MEDS: busPIRone HCL 10 MG TABLET (FP) PO SCH ×3 (06:01→21:48)
[2021-05-07] MEDS: NICOTINE 7 MG/24 HOURS TOPICAL PATCH TD SCH (09:37)
[2021-05-07] MEDS: VENLAFAXINE HCL 150 MG E.R. CAPSULE PO SCH (09:37)
[2021-05-07] MEDS: FAMOTIDINE 20 MG TABLET PO SCH ×2 (09:37→21:48)
[2021-05-07] MEDS: PRENATAL VITAMINS W/ FOLIC ACID TABLET (FP) PO SCH (09:37)
[2021-05-07] MEDS: NICOTINE POLACRILEX 2 MG GUM BUC PRN (09:39)
[2021-05-07] MEDS: NICOTINE 10 MG CARTRIDGE (INHALER) IH PRN (14:12)
[2021-05-07] MEDS: traZODone HCL 50 MG TABLET (FP) PO PRN (21:48)
[2021-05-07] MEDS: hydrOXYzine PAMOATE 25 MG CAPSULE (FP) PO PRN (21:48)
[2021-05-07] MEDS: NAPROXEN 500 MG TABLET PO PRN (21:48)
[2021-05-07] MEDS: MELATONIN 5 MG TABLETS PO SCH (21:48)
[2021-05-07] MEDS: THIAMINE HCL 100 MG TABLET (FP) PO SCH (21:48)
[2021-05-08] MEDS: busPIRone HCL 10 MG TABLET (FP) PO SCH ×3 (06:02→21:10)
[2021-05-08] MEDS: methaDONE HCL 40 MG DISPERSABLE TABLET PO SCH (06:02)
[2021-05-08] MEDS: NICOTINE 7 MG/24 HOURS TOPICAL PATCH TD SCH (09:39)
[2021-05-08] MEDS: FAMOTIDINE 20 MG TABLET PO SCH ×2 (09:39→21:10)
[2021-05-08] MEDS: PRENATAL VITAMINS W/ FOLIC ACID TABLET (FP) PO SCH (09:39)
[2021-05-08] MEDS: VENLAFAXINE HCL 150 MG E.R. CAPSULE PO SCH (09:39)
[2021-05-08] MEDS: NAPROXEN 500 MG TABLET PO PRN (09:40)
[2021-05-08] MEDS ORDERED: FUROSEMIDE 40 MG TABLET (FP) PO ONE (10:42)
[2021-05-08] MEDS: MELATONIN 5 MG TABLETS PO SCH (21:10)
[2021-05-08] MEDS: THIAMINE HCL 100 MG TABLET (FP) PO SCH (22:28)
[2021-05-09] MEDS: busPIRone HCL 10 MG TABLET (FP) PO SCH ×3 (06:09→21:11)
[2021-05-09] MEDS: methaDONE HCL 40 MG DISPERSABLE TABLET PO SCH (06:09)
[2021-05-09] MEDS: NICOTINE POLACRILEX 2 MG GUM BUC PRN (09:47)
[2021-05-09] MEDS: NICOTINE 7 MG/24 HOURS TOPICAL PATCH TD SCH (09:47)
[2021-05-09] MEDS: PRENATAL VITAMINS W/ FOLIC ACID TABLET (FP) PO SCH (09:47)
[2021-05-09] MEDS: VENLAFAXINE HCL 150 MG E.R. CAPSULE PO SCH (09:47)
[2021-05-09] MEDS: FAMOTIDINE 20 MG TABLET PO SCH ×2 (09:47→21:11)
[2021-05-09] MEDS ORDERED: FUROSEMIDE 40 MG TABLET (FP) PO SCH (10:00)
[2021-05-09] MEDS: MELATONIN 5 MG TABLETS PO SCH (21:11)
[2021-05-09] MEDS: THIAMINE HCL 100 MG TABLET (FP) PO SCH (21:11)
[2021-05-10] MEDS: methaDONE HCL 40 MG DISPERSABLE TABLET PO SCH (05:59)
[2021-05-10] MEDS: busPIRone HCL 10 MG TABLET (FP) PO SCH ×3 (06:00→22:17)
[2021-05-10] MEDS: PRENATAL VITAMINS W/ FOLIC ACID TABLET (FP) PO SCH (09:27)
[2021-05-10] MEDS: FAMOTIDINE 20 MG TABLET PO SCH ×2 (09:28→22:02)
[2021-05-10] MEDS: VENLAFAXINE HCL 150 MG E.R. CAPSULE PO SCH (09:28)
[2021-05-10] MEDS: NICOTINE 7 MG/24 HOURS TOPICAL PATCH TD SCH (09:29)
[2021-05-10] MEDS: NICOTINE POLACRILEX 2 MG GUM BUC PRN (09:29)
[2021-05-10] MEDS: NAPROXEN 500 MG TABLET PO PRN (09:29)
[2021-05-10] MEDS: MELATONIN 5 MG TABLETS PO SCH (22:02)
[2021-05-10] MEDS: traZODone HCL 50 MG TABLET (FP) PO PRN (22:02)
[2021-05-10] MEDS: THIAMINE HCL 100 MG TABLET (FP) PO SCH (22:02)
[2021-05-11] MEDS: busPIRone HCL 10 MG TABLET (FP) PO SCH ×3 (06:00→21:14)
[2021-05-11] MEDS: methaDONE HCL 40 MG DISPERSABLE TABLET PO SCH (06:06)
[2021-05-11] MEDS: PRENATAL VITAMINS W/ FOLIC ACID TABLET (FP) PO SCH (09:17)
[2021-05-11] MEDS: VENLAFAXINE HCL 150 MG E.R. CAPSULE PO SCH (09:17)
[2021-05-11] MEDS: FAMOTIDINE 20 MG TABLET PO SCH ×2 (09:17→21:13)
[2021-05-11] MEDS: NICOTINE 7 MG/24 HOURS TOPICAL PATCH TD SCH (09:17)
[2021-05-11] MEDS: THIAMINE HCL 100 MG TABLET (FP) PO SCH (21:13)
[2021-05-11] MEDS: hydrOXYzine PAMOATE 25 MG CAPSULE (FP) PO PRN (21:13)
[2021-05-11] MEDS: MELATONIN 5 MG TABLETS PO SCH (21:14)
[2021-05-11] MEDS: NAPROXEN 500 MG TABLET PO PRN (21:14)
[2021-05-11] MEDS: traZODone HCL 100 MG TABLET (FP) PO SCH (21:15)
[2021-05-12] MEDS: methaDONE HCL 40 MG DISPERSABLE TABLET PO SCH (06:07)
[2021-05-12] MEDS: busPIRone HCL 10 MG TABLET (FP) PO SCH ×3 (06:07→22:04)
[2021-05-12] MEDS: FAMOTIDINE 20 MG TABLET PO SCH ×2 (09:36→22:04)
[2021-05-12] MEDS: PRENATAL VITAMINS W/ FOLIC ACID TABLET (FP) PO SCH (09:36)
[2021-05-12] MEDS: VENLAFAXINE HCL 150 MG E.R. CAPSULE PO SCH (09:36)
[2021-05-12] MEDS: NICOTINE 10 MG CARTRIDGE (INHALER) IH PRN (09:37)
[2021-05-12] MEDS: NICOTINE 7 MG/24 HOURS TOPICAL PATCH TD SCH (09:37)
[2021-05-12] MEDS: hydrOXYzine PAMOATE 25 MG CAPSULE (FP) PO PRN ×2 (14:05→22:04)
[2021-05-12] MEDS: THIAMINE HCL 100 MG TABLET (FP) PO SCH (22:04)
[2021-05-12] MEDS: MELATONIN 5 MG TABLETS PO SCH (22:04)
[2021-05-12] MEDS: NAPROXEN 500 MG TABLET PO PRN (22:04)
[2021-05-12] MEDS: traZODone HCL 100 MG TABLET (FP) PO SCH (22:04)
[2021-05-13] MEDS: methaDONE HCL 40 MG DISPERSABLE TABLET PO SCH (06:12)
[2021-05-13] MEDS: busPIRone HCL 10 MG TABLET (FP) PO SCH ×3 (06:12→21:11)
[2021-05-13] MEDS: NICOTINE 7 MG/24 HOURS TOPICAL PATCH TD SCH (09:30)
[2021-05-13] MEDS: PRENATAL VITAMINS W/ FOLIC ACID TABLET (FP) PO SCH (09:30)
[2021-05-13] MEDS: VENLAFAXINE HCL 150 MG E.R. CAPSULE PO SCH (09:30)
[2021-05-13] MEDS: FAMOTIDINE 20 MG TABLET PO SCH ×2 (09:30→21:10)
[2021-05-13] MEDS: MELATONIN 5 MG TABLETS PO SCH (21:11)
[2021-05-13] MEDS: traZODone HCL 100 MG TABLET (FP) PO SCH (21:11)
[2021-05-13] MEDS: THIAMINE HCL 100 MG TABLET (FP) PO SCH (21:11)
[2021-05-14] MEDS: busPIRone HCL 10 MG TABLET (FP) PO SCH (06:08)
[2021-05-14] MEDS: methaDONE HCL 40 MG DISPERSABLE TABLET PO SCH (06:08)
[2021-05-14 07:08] VITALS: BP 111/70; PULSE 69; TEMP 97.5
[2021-05-14] MEDS: NICOTINE 7 MG/24 HOURS TOPICAL PATCH TD SCH (09:10)
[2021-05-14] MEDS: PRENATAL VITAMINS W/ FOLIC ACID TABLET (FP) PO SCH (09:10)
[2021-05-14] MEDS: VENLAFAXINE HCL 150 MG E.R. CAPSULE PO SCH (09:11)
[2021-05-14] MEDS: FAMOTIDINE 20 MG TABLET PO SCH (09:11)
[2021-05-14] MEDS: NICOTINE 10 MG CARTRIDGE (INHALER) IH PRN (09:28)
== END 2021-05-14 09:30 | disposition home or self-care (01) | DRG 772 ==
LOC: YASAS 13:00 → Y5N 13:01
PROVIDERS: ADMIT Allergy & Immunology; ATTEND Allergy & Immunology
PROC: HZ42ZZZ Group Counseling for Substance Abuse Treatment, Cognitive-Behavioral (ICD-10-PCS; principal; 2021-04-29)
DX: F10.20 Alcohol dependence, uncomplicated (principal); F11.20 Opioid dependence, uncomplicated; F14.20 Cocaine dependence, uncomplicated; F13.20 Sedative, hypnotic or anxiolytic dependence, uncomplicated; F17.210 Nicotine dependence, cigarettes, uncomplicated; F43.10 Post-traumatic stress disorder, unspecified; J45.20 Mild intermittent asthma, uncomplicated; K21.9 Gastro-esophageal reflux disease without esophagitis; R60.0 Localized edema; Z86.19 Personal history of other infectious and parasitic diseases
CPT/HCPCS: 90686; G0008

== ENCOUNTER 2021-12-17 13:31 | Inpatient (IN) | payer OTHER ==
[2021-12-17 13:56] VITALS: BMI 25.8
[2021-12-17] MEDS ORDERED: NICOTINE POLACRILEX 4 MG GUM BUC PRN (14:13)
[2021-12-17] MEDS ORDERED: MAGNESIUM CITRATE 300 ML BOTTLE PO PRN (14:13)
[2021-12-17] MEDS ORDERED: BENZOCAINE/MENTHOL (CHLORASEPTIC ) LOZENGE MM PRN (14:13)
[2021-12-17] MEDS ORDERED: MAGNESIUM HYDROX 2400MG/30ML ORAL SUSPENSION 30 ML CUP PO PRN (14:13)
[2021-12-17] MEDS ORDERED: MAG HYDROX/AL HYDROX/SIMETH 30 ML UNIT-DOSE CUP PO PRN (14:13)
[2021-12-17] MEDS ORDERED: chlordiazePOXIDE HCL 25 MG CAPSULE PO PRN (14:13)
[2021-12-17] MEDS ORDERED: ONDANSETRON *ODT* 4 MG TABLET SL PRN (14:13)
[2021-12-17] MEDS ORDERED: BISMUTH SUBSALICYLATE 262 MG/15 ML BTL PO PRN (14:13)
[2021-12-17] MEDS ORDERED: LOPERAMIDE HCL 2 MG CAPSULE PO PRN (14:13)
[2021-12-17] MEDS ORDERED: NALOXONE HCL (KLOXXADO) 8 MG SPRAY NS PRN (14:13)
[2021-12-17] MEDS ORDERED: NICOTINE 10 MG CARTRIDGE (INHALER) IH PRN (14:13)
[2021-12-17] MEDS ORDERED: ACETAMINOPHEN 325 MG TABLET (FP) PO PRN ×2 (14:13)
[2021-12-17] MEDS ORDERED: DICYCLOMINE HCL 10 MG CAPSULE PO PRN (14:13)
[2021-12-17] MEDS ORDERED: ALBUTEROL SO4 HFA INHALER IH PRN (14:17)
[2021-12-17] MEDS ORDERED: HYDROCORTISONE 0.5% TOPICAL CREAM 30 GM TUBE TP PRN (15:18)
[2021-12-17] MEDS: chlordiazePOXIDE HCL 25 MG CAPSULE PO SCH ×2 (17:26→23:56)
[2021-12-17] MEDS: IBUPROFEN 600 MG TABLET (FP) PO PRN (17:27)
[2021-12-17] MEDS: hydrOXYzine PAMOATE 25 MG CAPSULE (FP) PO SCH ×2 (17:30→22:32)
[2021-12-17] MEDS: PRENATAL VITAMINS W/ FOLIC ACID TABLET (FP) PO SCH (18:04)
[2021-12-17] MEDS: traZODone HCL 100 MG TABLET (FP) PO SCH (22:32)
[2021-12-17] MEDS: GABAPENTIN 400 MG CAPSULE PO SCH (22:32)
[2021-12-17] MEDS: busPIRone HCL 5 MG TABLET PO SCH (22:32)
[2021-12-17] MEDS: MELATONIN 5 MG TABLETS PO SCH (22:33)
[2021-12-17] MEDS: THIAMINE HCL 100 MG TABLET (FP) PO SCH (22:35)
[2021-12-18] MEDS: chlordiazePOXIDE HCL 25 MG CAPSULE PO SCH ×4 (07:22→22:46)
[2021-12-18] MEDS: hydrOXYzine PAMOATE 25 MG CAPSULE (FP) PO SCH ×5 (07:23→23:22)
[2021-12-18] MEDS ORDERED: methaDONE HCL 10 MG TABLET PO SCH (09:45)
[2021-12-18] MEDS ORDERED: methaDONE HCL 40 MG DISPERSABLE TABLET ONE (09:57)
[2021-12-18] MEDS ORDERED: methaDONE HCL 10 MG TABLET ONE (09:57)
[2021-12-18] MEDS ORDERED: PANTOPRAZOLE 40 MG TABLET PO SCH (10:30)
[2021-12-18] MEDS: METHOCARBAMOL 500 MG TABLET PO PRN (10:49)
[2021-12-18] MEDS: FAMOTIDINE 20 MG TABLET PO SCH (10:49)
[2021-12-18] MEDS: busPIRone HCL 5 MG TABLET PO SCH ×2 (10:50→22:45)
[2021-12-18] MEDS: GABAPENTIN 400 MG CAPSULE PO SCH ×2 (10:50→22:45)
[2021-12-18] MEDS: IBUPROFEN 600 MG TABLET (FP) PO PRN (10:51)
[2021-12-18] MEDS: PRENATAL VITAMINS W/ FOLIC ACID TABLET (FP) PO SCH (10:56)
[2021-12-18 12:52] LABS: HEMATOCRIT 37.7 % (35.4-49); HEMOGLOBIN 12.8 GM/dL (11.7-16.9); MCH 31.1 pg (25.7-33.7); MEAN CELL VOLUME 91.5 fl (80-96); MEAN PLT VOLUME 7.6 fl (7.5-11.1); PLATELET COUNT 220 10^3/uL (134-434); RBC 4.12 M/mm3 (4.00-5.60); WHITE BLOOD COUNT 4.7 K/mm3 (4.0-10.0)
[2021-12-18 12:59] LABS: BLOOD UREA NITROGEN 14.7 mg/dL (7-18); CALCIUM 9.2 mg/dL (8.5-10.1)
[2021-12-18 13:03] LABS: BILIRUBIN,TOTAL 0.3 mg/dL (0.2-1); CREATININE 0.9 mg/dL (0.55-1.3); TOT PROT 7.2 g/dl (6.4-8.2)
[2021-12-18] MEDS: THIAMINE HCL 100 MG TABLET (FP) PO SCH (22:44)
[2021-12-18] MEDS: ATORVASTATIN CA 20 MG TABLET (FP) PO SCH (22:45)
[2021-12-18] MEDS: traZODone HCL 100 MG TABLET (FP) PO SCH (22:46)
[2021-12-18] MEDS: MELATONIN 5 MG TABLETS PO SCH (23:22)
[2021-12-19] MEDS ORDERED: methaDONE HCL 10 MG TABLET ONE (04:17)
[2021-12-19] MEDS ORDERED: methaDONE HCL 40 MG DISPERSABLE TABLET ONE (04:17)
[2021-12-19] MEDS: chlordiazePOXIDE HCL 25 MG CAPSULE PO SCH ×4 (05:15→23:00)
[2021-12-19] MEDS: IBUPROFEN 600 MG TABLET (FP) PO PRN (05:16)
[2021-12-19] MEDS: hydrOXYzine PAMOATE 25 MG CAPSULE (FP) PO SCH ×5 (05:17→23:00)
[2021-12-19] MEDS: busPIRone HCL 5 MG TABLET PO SCH ×2 (10:42→22:59)
[2021-12-19] MEDS: PRENATAL VITAMINS W/ FOLIC ACID TABLET (FP) PO SCH (10:42)
[2021-12-19] MEDS: VENLAFAXINE HCL 75 MG E.R. CAPSULES PO SCH (10:42)
[2021-12-19] MEDS: GABAPENTIN 400 MG CAPSULE PO SCH ×2 (10:42→22:40)
[2021-12-19] MEDS: FAMOTIDINE 20 MG TABLET PO SCH (10:42)
[2021-12-19] MEDS: THIAMINE HCL 100 MG TABLET (FP) PO SCH (22:40)
[2021-12-19] MEDS: traZODone HCL 100 MG TABLET (FP) PO SCH (22:40)
[2021-12-19] MEDS: ATORVASTATIN CA 20 MG TABLET (FP) PO SCH (22:40)
[2021-12-19] MEDS: MELATONIN 5 MG TABLETS PO SCH (23:00)
[2021-12-20] MEDS ORDERED: chlordiazePOXIDE HCL 10 MG CAPSULE PO PRN
[2021-12-20] MEDS ORDERED: methaDONE HCL 10 MG TABLET ONE (04:42)
[2021-12-20] MEDS ORDERED: methaDONE HCL 40 MG DISPERSABLE TABLET ONE (04:43)
[2021-12-20] MEDS: chlordiazePOXIDE HCL 10 MG CAPSULE PO SCH ×4 (05:11→23:32)
[2021-12-20] MEDS: IBUPROFEN 400 MG TABLET (FP) PO PRN (05:14)
[2021-12-20] MEDS: hydrOXYzine PAMOATE 25 MG CAPSULE (FP) PO SCH ×5 (05:15→23:33)
[2021-12-20] MEDS: FAMOTIDINE 20 MG TABLET PO SCH (10:23)
[2021-12-20] MEDS: GABAPENTIN 400 MG CAPSULE PO SCH ×2 (10:23→22:30)
[2021-12-20] MEDS: VENLAFAXINE HCL 75 MG E.R. CAPSULES PO SCH (10:23)
[2021-12-20] MEDS: busPIRone HCL 5 MG TABLET PO SCH ×2 (10:23→23:32)
[2021-12-20] MEDS: PRENATAL VITAMINS W/ FOLIC ACID TABLET (FP) PO SCH (10:23)
[2021-12-20] MEDS: ATORVASTATIN CA 20 MG TABLET (FP) PO SCH (22:30)
[2021-12-20] MEDS: THIAMINE HCL 100 MG TABLET (FP) PO SCH (22:30)
[2021-12-20] MEDS: traZODone HCL 100 MG TABLET (FP) PO SCH (23:32)
[2021-12-20] MEDS: MELATONIN 5 MG TABLETS PO SCH (23:33)
[2021-12-21] MEDS ORDERED: methaDONE HCL 10 MG TABLET ONE (04:08)
[2021-12-21] MEDS ORDERED: methaDONE HCL 40 MG DISPERSABLE TABLET ONE (04:08)
[2021-12-21] MEDS ORDERED: chlordiazePOXIDE HCL 10 MG CAPSULE PO SCH (05:00)
[2021-12-21] MEDS: hydrOXYzine PAMOATE 25 MG CAPSULE (FP) PO SCH ×4 (05:29→18:55)
[2021-12-21] MEDS: IBUPROFEN 400 MG TABLET (FP) PO PRN (05:30)
[2021-12-21] MEDS: PRENATAL VITAMINS W/ FOLIC ACID TABLET (FP) PO SCH (10:19)
[2021-12-21] MEDS: FAMOTIDINE 20 MG TABLET PO SCH (10:19)
[2021-12-21] MEDS: chlordiazePOXIDE 5 MG CAPSULE PO SCH (10:19)
[2021-12-21] MEDS: VENLAFAXINE HCL 75 MG E.R. CAPSULES PO SCH (10:19)
[2021-12-21] MEDS: busPIRone HCL 10 MG TABLET (FP) PO SCH ×2 (12:33→22:43)
[2021-12-21] MEDS: ATORVASTATIN CA 20 MG TABLET (FP) PO SCH (22:42)
[2021-12-21] MEDS: THIAMINE HCL 100 MG TABLET (FP) PO SCH (22:42)
[2021-12-22] MEDS: traZODone HCL 100 MG TABLET (FP) PO SCH (00:22)
[2021-12-22] MEDS: hydrOXYzine PAMOATE 25 MG CAPSULE (FP) PO SCH ×3 (00:22→10:22)
[2021-12-22] MEDS: MELATONIN 5 MG TABLETS PO SCH (00:22)
[2021-12-22] MEDS: chlordiazePOXIDE 5 MG CAPSULE PO SCH (00:22)
[2021-12-22] MEDS: IBUPROFEN 400 MG TABLET (FP) PO PRN (02:02)
[2021-12-22] MEDS ORDERED: methaDONE HCL 40 MG DISPERSABLE TABLET ONE (04:41)
[2021-12-22] MEDS ORDERED: methaDONE HCL 10 MG TABLET ONE (04:41)
[2021-12-22] MEDS ORDERED: chlordiazePOXIDE 5 MG CAPSULE PO ONE (05:00)
[2021-12-22 09:30] VITALS: BP 125/69; PULSE 74; TEMP 97.5
[2021-12-22] MEDS: FAMOTIDINE 20 MG TABLET PO SCH (10:22)
[2021-12-22] MEDS: VENLAFAXINE HCL 75 MG E.R. CAPSULES PO SCH (10:22)
[2021-12-22] MEDS: METHOCARBAMOL 500 MG TABLET PO PRN (10:22)
[2021-12-22] MEDS: busPIRone HCL 10 MG TABLET (FP) PO SCH (10:22)
[2021-12-22] MEDS: PRENATAL VITAMINS W/ FOLIC ACID TABLET (FP) PO SCH (10:22)
== END 2021-12-22 11:43 | disposition other institution (70) | DRG 773 ==
LOC: YASAS 13:31 → Y6N 16:18
PROVIDERS: ADMIT Allergy & Immunology; ATTEND Surgery
PROC: HZ2ZZZZ Detoxification Services for Substance Abuse Treatment (ICD-10-PCS; principal; 2021-12-17)
DX: F10.230 Alcohol dependence with withdrawal, uncomplicated (principal); F11.20 Opioid dependence, uncomplicated; F14.20 Cocaine dependence, uncomplicated; F17.210 Nicotine dependence, cigarettes, uncomplicated; F19.282 Other psychoactive substance dependence with psychoactive substance-induced sleep disorder; F19.24 Other psychoactive substance dependence with psychoactive substance-induced mood disorder; F41.8 Other specified anxiety disorders; F32.A Depression, unspecified; F43.10 Post-traumatic stress disorder, unspecified; E78.5 Hyperlipidemia, unspecified; J45.909 Unspecified asthma, uncomplicated; K21.9 Gastro-esophageal reflux disease without esophagitis; M54.50 Low back pain, unspecified; G89.29 Other chronic pain; Z86.19 Personal history of other infectious and parasitic diseases; Z56.0 Unemployment, unspecified; Z59.00 Homelessness unspecified
CPT/HCPCS: 36415; 80053; 85027; 86780; 87811; C9803-CS; U0003; U0005

== ENCOUNTER 2021-12-22 11:03 | Inpatient (IN) | payer OTHER ==
[2021-12-22] MEDS ORDERED: guaiFENesin 200 MG/10 ML 10 ML UNIT-DOSE CUPS PO PRN (15:37)
[2021-12-22] MEDS ORDERED: NICOTINE 10 MG CARTRIDGE (INHALER) IH PRN (15:37)
[2021-12-22] MEDS ORDERED: hydrOXYzine PAMOATE 25 MG CAPSULE (FP) PO PRN (15:37)
[2021-12-22] MEDS ORDERED: MAGNESIUM CITRATE 300 ML BOTTLE PO PRN (15:37)
[2021-12-22] MEDS ORDERED: ACETAMINOPHEN 325 MG TABLET (FP) PO PRN (15:37)
[2021-12-22] MEDS ORDERED: BENZOCAINE/MENTHOL (CHLORASEPTIC ) LOZENGE MM PRN (15:37)
[2021-12-22] MEDS ORDERED: MAGNESIUM HYDROX 2400MG/30ML ORAL SUSPENSION 30 ML CUP PO PRN (15:37)
[2021-12-22] MEDS ORDERED: P-EPHED 60MG/TRIPROLIDI 2.5MG TABLET PO PRN (15:37)
[2021-12-22] MEDS ORDERED: LOPERAMIDE HCL 2 MG CAPSULE PO PRN (15:37)
[2021-12-22] MEDS ORDERED: MELATONIN 5 MG TABLETS PO PRN (15:37)
[2021-12-22] MEDS ORDERED: ALBUTEROL SO4 HFA INHALER IH PRN (15:38)
[2021-12-22] MEDS: THIAMINE HCL 100 MG TABLET (FP) PO SCH (21:20)
[2021-12-22] MEDS: ATORVASTATIN CA 20 MG TABLET (FP) PO SCH (21:21)
[2021-12-23] MEDS: IBUPROFEN 400 MG TABLET (FP) PO PRN ×3 (03:34→21:11)
[2021-12-23] MEDS ORDERED: methaDONE HCL 10 MG TABLET ONE (04:18)
[2021-12-23] MEDS ORDERED: methaDONE HCL 40 MG DISPERSABLE TABLET ONE (04:18)
[2021-12-23] MEDS ORDERED: methaDONE HCL 40 MG DISPERSABLE TABLET PO SCH (06:00)
[2021-12-23] MEDS: FAMOTIDINE 20 MG TABLET PO SCH (09:42)
[2021-12-23] MEDS: PRENATAL VITAMINS W/ FOLIC ACID TABLET (FP) PO SCH (09:42)
[2021-12-23] MEDS: VENLAFAXINE HCL 75 MG E.R. CAPSULES PO SCH (13:30)
[2021-12-23] MEDS: busPIRone HCL 10 MG TABLET (FP) PO SCH ×2 (13:43→21:12)
[2021-12-23] MEDS ORDERED: LIDOCAINE VISCOUS 2% ORAL/TOP 15 ML UNIT-DOSE CUP MM PRN (15:35)
[2021-12-23] MEDS: THIAMINE HCL 100 MG TABLET (FP) PO SCH (21:11)
[2021-12-23] MEDS: traZODone HCL 100 MG TABLET (FP) PO SCH (21:12)
[2021-12-23] MEDS: ATORVASTATIN CA 20 MG TABLET (FP) PO SCH (21:12)
[2021-12-24] MEDS ORDERED: methaDONE HCL 10 MG TABLET ONE (04:24)
[2021-12-24] MEDS ORDERED: methaDONE HCL 40 MG DISPERSABLE TABLET ONE (04:25)
[2021-12-24] MEDS: busPIRone HCL 10 MG TABLET (FP) PO SCH ×3 (06:29→21:01)
[2021-12-24] MEDS: IBUPROFEN 400 MG TABLET (FP) PO PRN ×2 (06:39→14:56)
[2021-12-24] MEDS: FAMOTIDINE 20 MG TABLET PO SCH (09:39)
[2021-12-24] MEDS: PRENATAL VITAMINS W/ FOLIC ACID TABLET (FP) PO SCH (09:39)
[2021-12-24] MEDS: VENLAFAXINE HCL 75 MG E.R. CAPSULES PO SCH (09:39)
[2021-12-24 15:43] LABS: CHOLESTEROL 116 mg/dL (50-200)
[2021-12-24 15:44] LABS: LDL CHOLESTEROL (ONLY SJRH) 44 mg/dL (5-100); TRIGLYCERIDES 80 mg/dL (0-150)
[2021-12-24 15:46] LABS: HDL CHOLESTEROL 52 mg/dL (40-60)
[2021-12-24] MEDS: THIAMINE HCL 100 MG TABLET (FP) PO SCH (21:01)
[2021-12-24] MEDS: traZODone HCL 100 MG TABLET (FP) PO SCH (21:01)
[2021-12-24] MEDS: ATORVASTATIN CA 20 MG TABLET (FP) PO SCH (21:01)
[2021-12-25] MEDS ORDERED: methaDONE HCL 10 MG TABLET ONE (04:07)
[2021-12-25] MEDS ORDERED: methaDONE HCL 40 MG DISPERSABLE TABLET ONE (04:07)
[2021-12-25] MEDS: MAG HYDROX/AL HYDROX/SIMETH 30 ML UNIT-DOSE CUP PO PRN ×2 (04:14→19:13)
[2021-12-25] MEDS: busPIRone HCL 10 MG TABLET (FP) PO SCH ×3 (06:24→21:12)
[2021-12-25] MEDS: IBUPROFEN 400 MG TABLET (FP) PO PRN ×2 (06:25→15:05)
[2021-12-25] MEDS: VENLAFAXINE HCL 75 MG E.R. CAPSULES PO SCH (09:47)
[2021-12-25] MEDS: PRENATAL VITAMINS W/ FOLIC ACID TABLET (FP) PO SCH (09:47)
[2021-12-25] MEDS: FAMOTIDINE 20 MG TABLET PO SCH (09:47)
[2021-12-25] MEDS: ATORVASTATIN CA 20 MG TABLET (FP) PO SCH (21:12)
[2021-12-25] MEDS: traZODone HCL 100 MG TABLET (FP) PO SCH (21:12)
[2021-12-25] MEDS: THIAMINE HCL 100 MG TABLET (FP) PO SCH (21:12)
[2021-12-26] MEDS: PANTOPRAZOLE 20 MG TABLET PO SCH ×2 (00:11→09:33)
[2021-12-26] MEDS ORDERED: methaDONE HCL 40 MG DISPERSABLE TABLET ONE (02:53)
[2021-12-26] MEDS ORDERED: methaDONE HCL 10 MG TABLET ONE (02:53)
[2021-12-26] MEDS: busPIRone HCL 10 MG TABLET (FP) PO SCH ×3 (06:21→21:21)
[2021-12-26] MEDS: IBUPROFEN 400 MG TABLET (FP) PO PRN ×2 (06:22→18:08)
[2021-12-26] MEDS: VENLAFAXINE HCL 75 MG E.R. CAPSULES PO SCH (09:33)
[2021-12-26] MEDS: PRENATAL VITAMINS W/ FOLIC ACID TABLET (FP) PO SCH (09:33)
[2021-12-26] MEDS: THIAMINE HCL 100 MG TABLET (FP) PO SCH (21:21)
[2021-12-26] MEDS: traZODone HCL 100 MG TABLET (FP) PO SCH (21:21)
[2021-12-26] MEDS: ATORVASTATIN CA 20 MG TABLET (FP) PO SCH (21:22)
[2021-12-27] MEDS ORDERED: methaDONE HCL 40 MG DISPERSABLE TABLET ONE (03:02)
[2021-12-27] MEDS ORDERED: methaDONE HCL 10 MG TABLET ONE (03:02)
[2021-12-27] MEDS: busPIRone HCL 10 MG TABLET (FP) PO SCH ×3 (06:18→21:23)
[2021-12-27] MEDS: IBUPROFEN 400 MG TABLET (FP) PO PRN (09:02)
[2021-12-27] MEDS: VENLAFAXINE HCL 75 MG E.R. CAPSULES PO SCH (09:46)
[2021-12-27] MEDS: PRENATAL VITAMINS W/ FOLIC ACID TABLET (FP) PO SCH (09:46)
[2021-12-27] MEDS: PANTOPRAZOLE 20 MG TABLET PO SCH (09:46)
[2021-12-27] MEDS: ATORVASTATIN CA 20 MG TABLET (FP) PO SCH (21:21)
[2021-12-27] MEDS: THIAMINE HCL 100 MG TABLET (FP) PO SCH (21:21)
[2021-12-27] MEDS: traZODone HCL 100 MG TABLET (FP) PO SCH (21:23)
[2021-12-28] MEDS ORDERED: methaDONE HCL 10 MG TABLET ONE (03:56)
[2021-12-28] MEDS ORDERED: methaDONE HCL 40 MG DISPERSABLE TABLET ONE (03:57)
[2021-12-28] MEDS: busPIRone HCL 10 MG TABLET (FP) PO SCH ×3 (06:47→21:39)
[2021-12-28] MEDS: IBUPROFEN 400 MG TABLET (FP) PO PRN ×2 (06:47→17:55)
[2021-12-28] MEDS: PANTOPRAZOLE 20 MG TABLET PO SCH (09:57)
[2021-12-28] MEDS: VENLAFAXINE HCL 75 MG E.R. CAPSULES PO SCH (09:57)
[2021-12-28] MEDS: PRENATAL VITAMINS W/ FOLIC ACID TABLET (FP) PO SCH (09:57)
[2021-12-28] MEDS: ATORVASTATIN CA 20 MG TABLET (FP) PO SCH (21:39)
[2021-12-28] MEDS: THIAMINE HCL 100 MG TABLET (FP) PO SCH (21:39)
[2021-12-28] MEDS: traZODone HCL 100 MG TABLET (FP) PO SCH (21:39)
[2021-12-29] MEDS ORDERED: methaDONE HCL 40 MG DISPERSABLE TABLET ONE (02:49)
[2021-12-29] MEDS ORDERED: methaDONE HCL 10 MG TABLET ONE (02:49)
[2021-12-29] MEDS: busPIRone HCL 10 MG TABLET (FP) PO SCH ×3 (06:21→21:27)
[2021-12-29] MEDS: PRENATAL VITAMINS W/ FOLIC ACID TABLET (FP) PO SCH (09:11)
[2021-12-29] MEDS: VENLAFAXINE HCL 75 MG E.R. CAPSULES PO SCH (09:11)
[2021-12-29] MEDS: PANTOPRAZOLE 20 MG TABLET PO SCH (09:12)
[2021-12-29] MEDS: IBUPROFEN 400 MG TABLET (FP) PO PRN (21:26)
[2021-12-29] MEDS: THIAMINE HCL 100 MG TABLET (FP) PO SCH (21:26)
[2021-12-29] MEDS: ATORVASTATIN CA 20 MG TABLET (FP) PO SCH (21:27)
[2021-12-29] MEDS: traZODone HCL 100 MG TABLET (FP) PO SCH (21:27)
[2021-12-30] MEDS ORDERED: methaDONE HCL 40 MG DISPERSABLE TABLET ONE (03:48)
[2021-12-30] MEDS ORDERED: methaDONE HCL 10 MG TABLET ONE (03:48)
[2021-12-30] MEDS: busPIRone HCL 10 MG TABLET (FP) PO SCH ×3 (06:29→21:11)
[2021-12-30] MEDS: PANTOPRAZOLE 20 MG TABLET PO SCH (09:58)
[2021-12-30] MEDS: VENLAFAXINE HCL 75 MG E.R. CAPSULES PO SCH (09:58)
[2021-12-30] MEDS: PRENATAL VITAMINS W/ FOLIC ACID TABLET (FP) PO SCH (09:59)
[2021-12-30] MEDS: IBUPROFEN 400 MG TABLET (FP) PO PRN (09:59)
[2021-12-30] MEDS: THIAMINE HCL 100 MG TABLET (FP) PO SCH (21:10)
[2021-12-30] MEDS: traZODone HCL 100 MG TABLET (FP) PO SCH (21:11)
[2021-12-30] MEDS: ATORVASTATIN CA 20 MG TABLET (FP) PO SCH (21:11)
[2021-12-31] MEDS ORDERED: methaDONE HCL 40 MG DISPERSABLE TABLET ONE (03:08)
[2021-12-31] MEDS ORDERED: methaDONE HCL 10 MG TABLET ONE (03:08)
[2021-12-31] MEDS: busPIRone HCL 10 MG TABLET (FP) PO SCH ×3 (07:27→21:19)
[2021-12-31] MEDS: IBUPROFEN 400 MG TABLET (FP) PO PRN (09:49)
[2021-12-31] MEDS: VENLAFAXINE HCL 75 MG E.R. CAPSULES PO SCH (09:49)
[2021-12-31] MEDS: PRENATAL VITAMINS W/ FOLIC ACID TABLET (FP) PO SCH (09:49)
[2021-12-31] MEDS: PANTOPRAZOLE 20 MG TABLET PO SCH (09:49)
[2021-12-31] MEDS: traZODone HCL 100 MG TABLET (FP) PO SCH (21:19)
[2021-12-31] MEDS: THIAMINE HCL 100 MG TABLET (FP) PO SCH (21:19)
[2021-12-31] MEDS: ATORVASTATIN CA 20 MG TABLET (FP) PO SCH (21:20)
[2022-01-01] MEDS ORDERED: methaDONE HCL 10 MG TABLET ONE (03:12)
[2022-01-01] MEDS ORDERED: methaDONE HCL 40 MG DISPERSABLE TABLET ONE (03:13)
[2022-01-01] MEDS: busPIRone HCL 10 MG TABLET (FP) PO SCH ×3 (06:32→21:56)
[2022-01-01] MEDS: VENLAFAXINE HCL 75 MG E.R. CAPSULES PO SCH (09:46)
[2022-01-01] MEDS: PRENATAL VITAMINS W/ FOLIC ACID TABLET (FP) PO SCH (09:46)
[2022-01-01] MEDS: PANTOPRAZOLE 20 MG TABLET PO SCH (09:46)
[2022-01-01] MEDS: ATORVASTATIN CA 20 MG TABLET (FP) PO SCH (21:56)
[2022-01-01] MEDS: traZODone HCL 100 MG TABLET (FP) PO SCH (21:56)
[2022-01-01] MEDS: THIAMINE HCL 100 MG TABLET (FP) PO SCH (21:56)
[2022-01-02] MEDS ORDERED: methaDONE HCL 10 MG TABLET ONE (03:04)
[2022-01-02] MEDS ORDERED: methaDONE HCL 40 MG DISPERSABLE TABLET ONE (03:04)
[2022-01-02] MEDS: busPIRone HCL 10 MG TABLET (FP) PO SCH ×3 (06:38→21:28)
[2022-01-02] MEDS: IBUPROFEN 400 MG TABLET (FP) PO PRN (06:42)
[2022-01-02] MEDS: VENLAFAXINE HCL 75 MG E.R. CAPSULES PO SCH (09:38)
[2022-01-02] MEDS: PANTOPRAZOLE 20 MG TABLET PO SCH (09:39)
[2022-01-02] MEDS: PRENATAL VITAMINS W/ FOLIC ACID TABLET (FP) PO SCH (09:39)
[2022-01-02] MEDS: traZODone HCL 100 MG TABLET (FP) PO SCH (21:28)
[2022-01-02] MEDS: ATORVASTATIN CA 20 MG TABLET (FP) PO SCH (21:28)
[2022-01-02] MEDS: THIAMINE HCL 100 MG TABLET (FP) PO SCH (21:28)
[2022-01-03] MEDS ORDERED: methaDONE HCL 10 MG TABLET ONE (04:04)
[2022-01-03] MEDS ORDERED: methaDONE HCL 40 MG DISPERSABLE TABLET ONE (04:04)
[2022-01-03] MEDS: busPIRone HCL 10 MG TABLET (FP) PO SCH ×3 (06:55→21:25)
[2022-01-03] MEDS: IBUPROFEN 400 MG TABLET (FP) PO PRN (06:55)
[2022-01-03] MEDS: PANTOPRAZOLE 20 MG TABLET PO SCH (10:01)
[2022-01-03] MEDS: VENLAFAXINE HCL 75 MG E.R. CAPSULES PO SCH (10:01)
[2022-01-03] MEDS: PRENATAL VITAMINS W/ FOLIC ACID TABLET (FP) PO SCH (10:01)
[2022-01-03] MEDS: THIAMINE HCL 100 MG TABLET (FP) PO SCH (21:24)
[2022-01-03] MEDS: ATORVASTATIN CA 20 MG TABLET (FP) PO SCH (21:25)
[2022-01-03] MEDS: traZODone HCL 100 MG TABLET (FP) PO SCH (21:25)
[2022-01-04] MEDS ORDERED: methaDONE HCL 10 MG TABLET ONE (04:28)
[2022-01-04] MEDS ORDERED: methaDONE HCL 40 MG DISPERSABLE TABLET ONE (04:28)
[2022-01-04] MEDS ORDERED: methaDONE HCL 10 MG TABLET PO SCH (06:00)
[2022-01-04] MEDS: busPIRone HCL 10 MG TABLET (FP) PO SCH ×3 (06:12→21:31)
[2022-01-04] MEDS: IBUPROFEN 400 MG TABLET (FP) PO PRN (06:13)
[2022-01-04] MEDS: PANTOPRAZOLE 20 MG TABLET PO SCH (09:49)
[2022-01-04] MEDS: VENLAFAXINE HCL 75 MG E.R. CAPSULES PO SCH (09:49)
[2022-01-04] MEDS: PRENATAL VITAMINS W/ FOLIC ACID TABLET (FP) PO SCH (09:49)
[2022-01-04] MEDS: THIAMINE HCL 100 MG TABLET (FP) PO SCH (21:31)
[2022-01-04] MEDS: ATORVASTATIN CA 20 MG TABLET (FP) PO SCH (21:31)
[2022-01-04] MEDS: traZODone HCL 100 MG TABLET (FP) PO SCH (21:31)
[2022-01-05] MEDS ORDERED: methaDONE HCL 40 MG DISPERSABLE TABLET ONE (05:09)
[2022-01-05] MEDS ORDERED: methaDONE HCL 10 MG TABLET ONE (05:09)
[2022-01-05] MEDS: IBUPROFEN 400 MG TABLET (FP) PO PRN (06:07)
[2022-01-05] MEDS: busPIRone HCL 10 MG TABLET (FP) PO SCH ×3 (06:07→21:25)
[2022-01-05] MEDS: PANTOPRAZOLE 20 MG TABLET PO SCH (09:45)
[2022-01-05] MEDS: VENLAFAXINE HCL 75 MG E.R. CAPSULES PO SCH (09:45)
[2022-01-05] MEDS: PRENATAL VITAMINS W/ FOLIC ACID TABLET (FP) PO SCH (09:45)
[2022-01-05] MEDS: THIAMINE HCL 100 MG TABLET (FP) PO SCH (21:24)
[2022-01-05] MEDS: traZODone HCL 100 MG TABLET (FP) PO SCH (21:25)
[2022-01-05] MEDS: ATORVASTATIN CA 20 MG TABLET (FP) PO SCH (21:25)
[2022-01-06] MEDS ORDERED: methaDONE HCL 40 MG DISPERSABLE TABLET ONE (03:04)
[2022-01-06] MEDS ORDERED: methaDONE HCL 10 MG TABLET ONE (03:04)
[2022-01-06] MEDS: IBUPROFEN 400 MG TABLET (FP) PO PRN ×2 (06:11→15:51)
[2022-01-06] MEDS: busPIRone HCL 10 MG TABLET (FP) PO SCH ×3 (06:11→21:29)
[2022-01-06] MEDS: PANTOPRAZOLE 20 MG TABLET PO SCH (09:35)
[2022-01-06] MEDS: PRENATAL VITAMINS W/ FOLIC ACID TABLET (FP) PO SCH (09:35)
[2022-01-06] MEDS: VENLAFAXINE HCL 75 MG E.R. CAPSULES PO SCH (09:35)
[2022-01-06] MEDS: traZODone HCL 100 MG TABLET (FP) PO SCH (21:29)
[2022-01-06] MEDS: THIAMINE HCL 100 MG TABLET (FP) PO SCH (21:29)
[2022-01-06] MEDS: ATORVASTATIN CA 20 MG TABLET (FP) PO SCH (21:29)
[2022-01-07] MEDS ORDERED: methaDONE HCL 10 MG TABLET ONE (03:12)
[2022-01-07] MEDS ORDERED: methaDONE HCL 40 MG DISPERSABLE TABLET ONE (03:12)
[2022-01-07] MEDS: busPIRone HCL 10 MG TABLET (FP) PO SCH ×3 (06:35→21:33)
[2022-01-07] MEDS: IBUPROFEN 400 MG TABLET (FP) PO PRN ×2 (06:35→21:34)
[2022-01-07] MEDS: PANTOPRAZOLE 20 MG TABLET PO SCH (09:44)
[2022-01-07] MEDS: VENLAFAXINE HCL 75 MG E.R. CAPSULES PO SCH (09:45)
[2022-01-07] MEDS: PRENATAL VITAMINS W/ FOLIC ACID TABLET (FP) PO SCH (09:45)
[2022-01-07] MEDS: AMOXICILLIN 250 MG CAPSULE PO SCH ×2 (11:10→21:33)
[2022-01-07] MEDS: THIAMINE HCL 100 MG TABLET (FP) PO SCH (21:32)
[2022-01-07] MEDS: ATORVASTATIN CA 20 MG TABLET (FP) PO SCH (21:33)
[2022-01-07] MEDS: traZODone HCL 100 MG TABLET (FP) PO SCH (21:33)
[2022-01-08] MEDS ORDERED: methaDONE HCL 40 MG DISPERSABLE TABLET ONE (03:03)
[2022-01-08] MEDS ORDERED: methaDONE HCL 10 MG TABLET ONE (03:03)
[2022-01-08] MEDS: IBUPROFEN 400 MG TABLET (FP) PO PRN ×2 (06:21→21:37)
[2022-01-08] MEDS: busPIRone HCL 10 MG TABLET (FP) PO SCH ×3 (06:21→21:35)
[2022-01-08] MEDS: PANTOPRAZOLE 20 MG TABLET PO SCH (09:36)
[2022-01-08] MEDS: PRENATAL VITAMINS W/ FOLIC ACID TABLET (FP) PO SCH (09:37)
[2022-01-08] MEDS: AMOXICILLIN 250 MG CAPSULE PO SCH ×2 (09:37→21:36)
[2022-01-08] MEDS: VENLAFAXINE HCL 75 MG E.R. CAPSULES PO SCH (09:37)
[2022-01-08] MEDS: THIAMINE HCL 100 MG TABLET (FP) PO SCH (21:35)
[2022-01-08] MEDS: ATORVASTATIN CA 20 MG TABLET (FP) PO SCH (21:36)
[2022-01-08] MEDS: traZODone HCL 100 MG TABLET (FP) PO SCH (21:36)
[2022-01-09] MEDS ORDERED: methaDONE HCL 10 MG TABLET ONE (03:04)
[2022-01-09] MEDS ORDERED: methaDONE HCL 40 MG DISPERSABLE TABLET ONE (03:05)
[2022-01-09] MEDS: IBUPROFEN 400 MG TABLET (FP) PO PRN ×2 (06:01→22:14)
[2022-01-09] MEDS: busPIRone HCL 10 MG TABLET (FP) PO SCH ×3 (06:01→22:14)
[2022-01-09] MEDS: AMOXICILLIN 250 MG CAPSULE PO SCH ×2 (09:26→22:14)
[2022-01-09] MEDS: PRENATAL VITAMINS W/ FOLIC ACID TABLET (FP) PO SCH (09:26)
[2022-01-09] MEDS: PANTOPRAZOLE 20 MG TABLET PO SCH (09:26)
[2022-01-09] MEDS: VENLAFAXINE HCL 75 MG E.R. CAPSULES PO SCH (10:14)
[2022-01-09] MEDS: THIAMINE HCL 100 MG TABLET (FP) PO SCH (22:13)
[2022-01-09] MEDS: traZODone HCL 100 MG TABLET (FP) PO SCH (22:14)
[2022-01-09] MEDS: ATORVASTATIN CA 20 MG TABLET (FP) PO SCH (22:14)
[2022-01-10] MEDS ORDERED: methaDONE HCL 10 MG TABLET ONE (03:42)
[2022-01-10] MEDS ORDERED: methaDONE HCL 40 MG DISPERSABLE TABLET ONE (03:42)
[2022-01-10] MEDS: IBUPROFEN 400 MG TABLET (FP) PO PRN (06:21)
[2022-01-10] MEDS: busPIRone HCL 10 MG TABLET (FP) PO SCH ×3 (06:22→21:43)
[2022-01-10] MEDS: AMOXICILLIN 250 MG CAPSULE PO SCH ×2 (09:28→21:43)
[2022-01-10] MEDS: PRENATAL VITAMINS W/ FOLIC ACID TABLET (FP) PO SCH (09:28)
[2022-01-10] MEDS: VENLAFAXINE HCL 75 MG E.R. CAPSULES PO SCH (09:28)
[2022-01-10] MEDS: PANTOPRAZOLE 20 MG TABLET PO SCH (09:29)
[2022-01-10] MEDS: traZODone HCL 100 MG TABLET (FP) PO SCH (21:43)
[2022-01-10] MEDS: THIAMINE HCL 100 MG TABLET (FP) PO SCH (21:43)
[2022-01-10] MEDS: ATORVASTATIN CA 20 MG TABLET (FP) PO SCH (21:43)
[2022-01-11] MEDS ORDERED: methaDONE HCL 10 MG TABLET ONE (06:34)
[2022-01-11] MEDS ORDERED: methaDONE HCL 40 MG DISPERSABLE TABLET ONE (06:35)
[2022-01-11] MEDS: IBUPROFEN 400 MG TABLET (FP) PO PRN (06:46)
[2022-01-11] MEDS: busPIRone HCL 10 MG TABLET (FP) PO SCH ×3 (06:46→21:31)
[2022-01-11] MEDS: VENLAFAXINE HCL 75 MG E.R. CAPSULES PO SCH (09:25)
[2022-01-11] MEDS: PANTOPRAZOLE 20 MG TABLET PO SCH (09:25)
[2022-01-11] MEDS: AMOXICILLIN 250 MG CAPSULE PO SCH ×2 (09:26→21:31)
[2022-01-11] MEDS: PRENATAL VITAMINS W/ FOLIC ACID TABLET (FP) PO SCH (09:26)
[2022-01-11] MEDS: THIAMINE HCL 100 MG TABLET (FP) PO SCH (21:31)
[2022-01-11] MEDS: traZODone HCL 100 MG TABLET (FP) PO SCH (21:31)
[2022-01-11] MEDS: ATORVASTATIN CA 20 MG TABLET (FP) PO SCH (21:31)
[2022-01-12] MEDS ORDERED: methaDONE HCL 10 MG TABLET ONE (03:05)
[2022-01-12] MEDS ORDERED: methaDONE HCL 40 MG DISPERSABLE TABLET ONE (03:05)
[2022-01-12] MEDS: busPIRone HCL 10 MG TABLET (FP) PO SCH ×3 (06:05→21:03)
[2022-01-12] MEDS: IBUPROFEN 400 MG TABLET (FP) PO PRN ×2 (06:07→21:04)
[2022-01-12] MEDS: PANTOPRAZOLE 20 MG TABLET PO SCH (10:00)
[2022-01-12] MEDS: VENLAFAXINE HCL 75 MG E.R. CAPSULES PO SCH (10:00)
[2022-01-12] MEDS: AMOXICILLIN 250 MG CAPSULE PO SCH ×2 (10:00→21:44)
[2022-01-12] MEDS: PRENATAL VITAMINS W/ FOLIC ACID TABLET (FP) PO SCH (10:01)
[2022-01-12] MEDS: traZODone HCL 100 MG TABLET (FP) PO SCH (21:03)
[2022-01-12] MEDS: THIAMINE HCL 100 MG TABLET (FP) PO SCH (21:03)
[2022-01-12] MEDS: ATORVASTATIN CA 20 MG TABLET (FP) PO SCH (21:03)
[2022-01-13] MEDS ORDERED: methaDONE HCL 10 MG TABLET ONE (03:08)
[2022-01-13] MEDS ORDERED: methaDONE HCL 40 MG DISPERSABLE TABLET ONE (03:08)
[2022-01-13] MEDS: IBUPROFEN 400 MG TABLET (FP) PO PRN ×2 (06:24→21:32)
[2022-01-13] MEDS: busPIRone HCL 10 MG TABLET (FP) PO SCH ×3 (06:24→21:32)
[2022-01-13] MEDS: PANTOPRAZOLE 20 MG TABLET PO SCH (09:35)
[2022-01-13] MEDS: VENLAFAXINE HCL 75 MG E.R. CAPSULES PO SCH (09:35)
[2022-01-13] MEDS: PRENATAL VITAMINS W/ FOLIC ACID TABLET (FP) PO SCH (09:35)
[2022-01-13] MEDS: AMOXICILLIN 250 MG CAPSULE PO SCH ×2 (09:36→21:32)
[2022-01-13] MEDS: ATORVASTATIN CA 20 MG TABLET (FP) PO SCH (21:31)
[2022-01-13] MEDS: traZODone HCL 100 MG TABLET (FP) PO SCH (21:31)
[2022-01-13] MEDS: THIAMINE HCL 100 MG TABLET (FP) PO SCH (21:32)
[2022-01-14] MEDS ORDERED: methaDONE HCL 10 MG TABLET ONE (03:20)
[2022-01-14] MEDS ORDERED: methaDONE HCL 40 MG DISPERSABLE TABLET ONE (03:21)
[2022-01-14] MEDS: busPIRone HCL 10 MG TABLET (FP) PO SCH (06:02)
[2022-01-14] MEDS: IBUPROFEN 400 MG TABLET (FP) PO PRN (06:02)
[2022-01-14 06:35] VITALS: BP 132/65; PULSE 73; TEMP 96.9
[2022-01-14] MEDS: PANTOPRAZOLE 20 MG TABLET PO SCH (09:08)
[2022-01-14] MEDS: AMOXICILLIN 250 MG CAPSULE PO SCH (09:08)
[2022-01-14] MEDS: PRENATAL VITAMINS W/ FOLIC ACID TABLET (FP) PO SCH (09:08)
[2022-01-14] MEDS: VENLAFAXINE HCL 75 MG E.R. CAPSULES PO SCH (09:08)
== END 2022-01-14 09:20 | disposition home or self-care (01) | DRG 772 ==
LOC: YASAS 11:03 → Y3E 11:06
PROVIDERS: ADMIT Allergy & Immunology; ATTEND Psychiatry & Neurology Pain Medicine
PROC: HZ42ZZZ Group Counseling for Substance Abuse Treatment, Cognitive-Behavioral (ICD-10-PCS; principal; 2021-12-22)
DX: F10.20 Alcohol dependence, uncomplicated (principal); F13.20 Sedative, hypnotic or anxiolytic dependence, uncomplicated; F12.20 Cannabis dependence, uncomplicated; F17.210 Nicotine dependence, cigarettes, uncomplicated; F43.10 Post-traumatic stress disorder, unspecified; J45.909 Unspecified asthma, uncomplicated; K21.9 Gastro-esophageal reflux disease without esophagitis; K02.9 Dental caries, unspecified; Z86.19 Personal history of other infectious and parasitic diseases
CPT/HCPCS: 36415; 80061

== ENCOUNTER 2023-12-26 11:07 | Inpatient (IN) | payer OTHER ==
[2023-12-26 11:31] VITALS: BMI 24.5
[2023-12-26] MEDS ORDERED: NICOTINE POLACRILEX 2 MG GUM BUC PRN (11:40)
[2023-12-26] MEDS ORDERED: BISMUTH SUBSALICYLATE 524 MG/30 ML PO PRN (11:40)
[2023-12-26] MEDS ORDERED: P-EPHED 60MG/TRIPROLIDI 2.5MG TABLET PO PRN (11:40)
[2023-12-26] MEDS ORDERED: BENZOCAINE/MENTHOL (CHLORASEPTIC ) LOZENGE MM PRN (11:40)
[2023-12-26] MEDS ORDERED: IBUPROFEN 400 MG TABLET (FP) PO PRN (11:40)
[2023-12-26] MEDS ORDERED: NALOXONE HCL 0.4 MG/ML VIAL IM PRN (11:40)
[2023-12-26] MEDS ORDERED: MAG HYDROX/AL HYDROX/SIMETH 30 ML UNIT-DOSE CUP PO PRN (11:40)
[2023-12-26] MEDS ORDERED: MAGNESIUM HYDROX 2400MG/30ML ORAL SUSPENSION 30 ML CUP PO PRN (11:40)
[2023-12-26] MEDS ORDERED: BENZONATATE 200 MG CAPSULE PO PRN (11:40)
[2023-12-26] MEDS ORDERED: DICYCLOMINE HCL 10 MG CAPSULE PO PRN (11:40)
[2023-12-26] MEDS ORDERED: guaiFENesin 600 MG TABLET.ER (FP) PO PRN (11:40)
[2023-12-26] MEDS ORDERED: IBUPROFEN 600 MG TABLET (FP) PO PRN (11:40)
[2023-12-26] MEDS ORDERED: NICOTINE POLACRILEX 2 MG LOZENGE BC PRN (11:40)
[2023-12-26] MEDS ORDERED: LOPERAMIDE HCL 2 MG CAPSULE PO PRN (11:40)
[2023-12-26] MEDS ORDERED: ACETAMINOPHEN 325 MG TABLET (FP) PO PRN (11:40)
[2023-12-26] MEDS ORDERED: POLYETHYLENE GLYCOL (HEALTHYLAX) 3350 17 GM PACKET PO PRN (11:40)
[2023-12-26] MEDS ORDERED: NALOXONE (NARCAN) HCL 4 MG/0.1 ML SPRAY NS PRN (11:40)
[2023-12-26] MEDS ORDERED: ONDANSETRON *ODT* 4 MG TABLET SL PRN (11:40)
[2023-12-26] MEDS: METHOCARBAMOL 500 MG TABLET PO PRN (17:37)
[2023-12-26] MEDS: MELATONIN 5 MG TABLETS PO SCH (21:37)
[2023-12-26] MEDS: ATORVASTATIN CA 20 MG TABLET (FP) PO SCH (21:37)
[2023-12-26] MEDS: THIAMINE 100 MG TABLET PO SCH (21:37)
[2023-12-27] MEDS ORDERED: methaDONE HCL 40 MG DISPERSABLE TABLET PO SCH (06:00)
[2023-12-27] MEDS: PRENATAL VITAMINS W/ FOLIC ACID TABLET (FP) PO SCH (10:11)
[2023-12-27] MEDS: PANTOPRAZOLE 40 MG TABLET PO SCH (10:12)
[2023-12-27] MEDS: diazePAM 5 MG TABLET PO SCH (10:14)
[2023-12-27] MEDS: busPIRone HCL 10 MG TABLET (FP) PO SCH (10:19)
[2023-12-27] MEDS: GABAPENTIN 300 MG CAPSULE PO SCH (10:19)
[2023-12-27] MEDS: DULoxetine HCL 20 MG CAPSULE.DR PO SCH (11:01)
[2023-12-27 12:00] LABS: HEMATOCRIT 34.2 % (35.4-49); HEMOGLOBIN 11.3 GM/dL (11.7-16.9); MCH 30.5 pg (25.7-33.7); MCHC 33.1 g/dl (32.0-35.9); MEAN CELL VOLUME 92.3 fl (80-96); MEAN PLT VOLUME 7.7 fl (7.5-11.1); PLATELET COUNT 236 10^3/uL (134-434); RBC 3.71 M/mm3 (4.00-5.60); RDW 14.9 % (11.9-15.9); WHITE BLOOD COUNT 5.4 K/mm3 (4.0-10.0)
[2023-12-27 12:08] LABS: POTASSIUM 4.1 mmol/L (3.5-5.1)
[2023-12-27 12:10] LABS: CALCIUM 8.5 mg/dL (8.5-10.1)
[2023-12-27 12:11] LABS: BLOOD UREA NITROGEN 10.2 mg/dL (7-18)
[2023-12-27 12:14] LABS: CREATININE 0.8 mg/dL (0.55-1.3)
[2023-12-27 12:16] LABS: BILIRUBIN,TOTAL 0.7 mg/dL (0.2-1); TOT PROT 5.7 g/dl (6.4-8.2)
[2023-12-27] MEDS: QUEtiapine FUMARATE 200 MG TABLET PO SCH (22:01)
[2023-12-28] MEDS: diazePAM 5 MG TABLET PO PRN (17:53)
[2023-12-29] MEDS: diazePAM 5 MG TABLET PO SCH (06:42)
[2023-12-29] MEDS: ALBUTEROL SO4 HFA INHALER IH PRN (20:53)
[2023-12-30] MEDS: diazePAM 5 MG TABLET PO SCH (05:49)
[2023-12-31] MEDS: diazePAM 5 MG TABLET PO ONE (05:50)
[2023-12-31] MEDS ORDERED: hydrOXYzine PAMOATE 25 MG CAPSULE (FP) PO PRN (17:13)
[2024-01-01 13:07] VITALS: BP 104/61; PULSE 63; RESP 18; TEMP 98
== END 2024-01-01 13:19 | disposition other institution (70) | DRG 773 ==
LOC: YASAS 11:07 → Y6N 11:59
PROVIDERS: ADMIT Allergy & Immunology; ATTEND Surgery
PROC: HZ2ZZZZ Detoxification Services for Substance Abuse Treatment (ICD-10-PCS; principal; 2023-12-26)
DX: F13.230 Sedative, hypnotic or anxiolytic dependence with withdrawal, uncomplicated (principal); F11.20 Opioid dependence, uncomplicated; F14.10 Cocaine abuse, uncomplicated; F17.210 Nicotine dependence, cigarettes, uncomplicated; F19.282 Other psychoactive substance dependence with psychoactive substance-induced sleep disorder; F19.280 Other psychoactive substance dependence with psychoactive substance-induced anxiety disorder; F43.10 Post-traumatic stress disorder, unspecified; F25.1 Schizoaffective disorder, depressive type; E78.5 Hyperlipidemia, unspecified; J45.20 Mild intermittent asthma, uncomplicated; K21.9 Gastro-esophageal reflux disease without esophagitis; M17.0 Bilateral primary osteoarthritis of knee; Z99.89 Dependence on other enabling machines and devices; Z86.19 Personal history of other infectious and parasitic diseases
CPT/HCPCS: 36415; 80053; 80305; 80307; 82962; 85027; 86780; 87811; 93005; 93010

== ENCOUNTER 2024-01-01 13:25 | Inpatient (IN) | payer OTHER ==
[~2024-01-01 13:25] MED LIST: ACETAMINOPHEN 325 MG TABLET (FP) PO PRN; BENZOCAINE/MENTHOL (CHLORASEPTIC ) LOZENGE MM PRN; BENZONATATE 200 MG CAPSULE PO PRN; IBUPROFEN 400 MG TABLET (FP) PO PRN; LOPERAMIDE HCL 2 MG CAPSULE PO PRN; MAG HYDROX/AL HYDROX/SIMETH 30 ML UNIT-DOSE CUP PO PRN; MAGNESIUM HYDROX 2400MG/30ML ORAL SUSPENSION 30 ML CUP PO PRN; NALOXONE (NARCAN) HCL 4 MG/0.1 ML SPRAY NS PRN; NALOXONE HCL 0.4 MG/ML VIAL IM PRN; NICOTINE POLACRILEX 2 MG GUM BUC PRN; NICOTINE POLACRILEX 2 MG LOZENGE BC PRN; POLYETHYLENE GLYCOL (HEALTHYLAX) 3350 17 GM PACKET PO PRN; guaiFENesin 600 MG TABLET.ER (FP) PO PRN
[2024-01-01 14:21] VITALS: BMI 24.5
[2024-01-01] MEDS ORDERED: GABAPENTIN 400 MG CAPSULE PO SCH (22:00)
[2024-01-01] MEDS ORDERED: GABAPENTIN 300 MG CAPSULE PO SCH (22:00)
[2024-01-01] MEDS: busPIRone HCL 10 MG TABLET (FP) PO SCH (22:54)
[2024-01-01] MEDS: GABAPENTIN 300 MG CAPSULE PO SCH (22:54)
[2024-01-01] MEDS: THIAMINE 100 MG TABLET PO SCH (22:54)
[2024-01-01] MEDS: ATORVASTATIN CA 20 MG TABLET (FP) PO SCH (22:54)
[2024-01-01] MEDS: MELATONIN 5 MG TABLETS PO SCH (22:54)
[2024-01-01] MEDS: QUEtiapine FUMARATE 200 MG TABLET PO SCH (22:54)
[2024-01-01] MEDS: DULoxetine HCL 20 MG CAPSULE.DR PO SCH (23:00)
[2024-01-02] MEDS ORDERED: methaDONE HCL 40 MG DISPERSABLE TABLET PO SCH (06:00)
[2024-01-02] MEDS ORDERED: ATORVASTATIN CA 20 MG TABLET (FP) PO SCH (10:00)
[2024-01-02] MEDS: PRENATAL VITAMINS W/ FOLIC ACID TABLET (FP) PO SCH (10:28)
[2024-01-02] MEDS: FAMOTIDINE 20 MG TABLET PO SCH (10:29)
[2024-01-03] MEDS: PANTOPRAZOLE 20 MG TABLET PO SCH (13:29)
[2024-01-03] MEDS: FAMOTIDINE 20 MG TABLET PO SCH (18:44)
[2024-01-08] MEDS: IBUPROFEN 600 MG TABLET (FP) PO PRN (08:53)
[2024-01-09] MEDS: ALBUTEROL SO4 HFA INHALER IH PRN (06:05)
[2024-01-10] MEDS: TOLNAFTATE 1% CREAM 15 GM TUBE TP SCH (21:08)
[2024-01-16 06:25] VITALS: BP 110/72; PULSE 74; RESP 17; TEMP 97.5
== END 2024-01-16 09:38 | disposition home or self-care (01) | DRG 772 ==
LOC: YASAS 13:25 → Y3NR 13:27 → Y3W 01-02 12:45
PROVIDERS: ADMIT Allergy & Immunology; ATTEND Psychiatry & Neurology Pain Medicine
PROC: HZ42ZZZ Group Counseling for Substance Abuse Treatment, Cognitive-Behavioral (ICD-10-PCS; principal; 2024-01-01)
DX: F11.20 Opioid dependence, uncomplicated (principal); F14.20 Cocaine dependence, uncomplicated; F13.20 Sedative, hypnotic or anxiolytic dependence, uncomplicated; F17.210 Nicotine dependence, cigarettes, uncomplicated; F32.A Depression, unspecified; F41.9 Anxiety disorder, unspecified; F43.10 Post-traumatic stress disorder, unspecified; J45.20 Mild intermittent asthma, uncomplicated; J21.9 Acute bronchiolitis, unspecified; B35.3 Tinea pedis; M54.50 Low back pain, unspecified; G89.29 Other chronic pain; Z86.19 Personal history of other infectious and parasitic diseases; Z59.02 Unsheltered homelessness
CPT/HCPCS: 87811

== ENCOUNTER 2024-02-29 19:44 | Inpatient (IN) | payer OTHER ==
[2024-02-29 21:02] VITALS: BMI 27.1
[2024-02-29] MEDS ORDERED: ALBUTEROL SO4 HFA INHALER IH PRN (22:34)
[2024-02-29] MEDS ORDERED: P-EPHED 60MG/TRIPROLIDI 2.5MG TABLET PO PRN (22:44)
[2024-02-29] MEDS ORDERED: LOPERAMIDE HCL 2 MG CAPSULE PO PRN (22:44)
[2024-02-29] MEDS ORDERED: BISMUTH SUBSALICYLATE 524 MG/30 ML PO PRN (22:44)
[2024-02-29] MEDS ORDERED: MAG HYDROX/AL HYDROX/SIMETH 30 ML UNIT-DOSE CUP PO PRN (22:44)
[2024-02-29] MEDS ORDERED: NALOXONE (NARCAN) HCL 4 MG/0.1 ML SPRAY NS PRN (22:44)
[2024-02-29] MEDS ORDERED: MAGNESIUM HYDROX 2400MG/30ML ORAL SUSPENSION 30 ML CUP PO PRN (22:44)
[2024-02-29] MEDS ORDERED: NALOXONE HCL 0.4 MG/ML VIAL IM PRN (22:44)
[2024-02-29] MEDS ORDERED: BENZONATATE 200 MG CAPSULE PO PRN (22:44)
[2024-02-29] MEDS ORDERED: BENZOCAINE/MENTHOL (CHLORASEPTIC ) LOZENGE MM PRN (22:44)
[2024-02-29] MEDS ORDERED: POLYETHYLENE GLYCOL (HEALTHYLAX) 3350 17 GM PACKET PO PRN (22:44)
[2024-02-29] MEDS ORDERED: ACETAMINOPHEN 325 MG TABLET (FP) PO PRN (22:44)
[2024-02-29] MEDS ORDERED: IBUPROFEN 600 MG TABLET (FP) PO PRN (22:44)
[2024-02-29] MEDS ORDERED: guaiFENesin 600 MG TABLET.ER (FP) PO PRN (22:44)
[2024-02-29] MEDS ORDERED: IBUPROFEN 400 MG TABLET (FP) PO PRN (22:44)
[2024-03-01] MEDS: CEPHALEXIN MONOHYDRATE 500 MG CAPSULE (UD) PO SCH ×2 (01:47→01:57)
[2024-03-01] MEDS ORDERED: methaDONE HCL 10 MG TABLET PO SCH (08:45)
[2024-03-01] MEDS: ASPIRIN COATED 81 MG TABLET.EC PO SCH (09:39)
[2024-03-01] MEDS: PANTOPRAZOLE 20 MG TABLET PO SCH (09:39)
[2024-03-01] MEDS: PRENATAL VITAMINS W/ FOLIC ACID TABLET (FP) PO SCH (09:39)
[2024-03-01] MEDS: TOLNAFTATE 1% CREAM 15 GM TUBE TP SCH (09:40)
[2024-03-01 11:36] LABS: CHLORIDE 110 mmol/L (98-107); POTASSIUM 4.3 mmol/L (3.5-5.1); SODIUM 143 mmol/L (136-145)
[2024-03-01 11:40] LABS: CALCIUM 8.9 mg/dL (8.5-10.1)
[2024-03-01 11:41] LABS: ALBUMIN 3.1 g/dl (3.4-5.0); ANION GAP 5 mmol/L (4-13); CO2 28 mmol/L (21-32); GLUCOSE,RANDOM 109 mg/dL (74-106)
[2024-03-01 11:44] LABS: CREATININE 0.8 mg/dL (0.55-1.3); HEMATOCRIT 30.6 % (35.4-49); HEMOGLOBIN 10.2 GM/dL (11.7-16.9); MCH 31.1 pg (25.7-33.7); MCHC 33.5 g/dl (32.0-35.9); MEAN CELL VOLUME 93.1 fl (80-96); MEAN PLT VOLUME 7.9 fl (7.5-11.1); PLATELET COUNT 201 10^3/uL (134-434); RBC 3.29 M/mm3 (4.00-5.60); RDW 14.7 % (11.9-15.9); SGOT/AST 18 U/L (15-37); SGPT/ALT 18 U/L (13-61); WHITE BLOOD COUNT 4.3 K/mm3 (4.0-10.0)
[2024-03-01 11:45] LABS: BILIRUBIN,TOTAL 0.2 mg/dL (0.2-1); TOT PROT 6.1 g/dl (6.4-8.2)
[2024-03-01 11:46] LABS: ALK PHOS 74 U/L (45-117)
[2024-03-01] MEDS: GABAPENTIN 300 MG CAPSULE PO SCH (12:10)
[2024-03-01] MEDS: busPIRone HCL 10 MG TABLET (FP) PO SCH (12:10)
[2024-03-01] MEDS: QUEtiapine FUMARATE 100 MG TABLET (FP) PO SCH (22:23)
[2024-03-01] MEDS: DULoxetine HCL 20 MG CAPSULE.DR PO SCH (22:23)
[2024-03-01] MEDS: MELATONIN 5 MG TABLETS PO SCH (22:23)
[2024-03-01] MEDS: ATORVASTATIN CA 20 MG TABLET (FP) PO SCH (22:23)
[2024-03-01] MEDS: THIAMINE 100 MG TABLET PO SCH (22:23)
[2024-03-02 13:12] VITALS: BP 109/60; PULSE 67; RESP 18; TEMP 98
[2024-03-02] MEDS ORDERED: FERROUS SO4 325 MG TABLET (FP) PO SCH (14:00)
== END 2024-03-02 13:10 | disposition other institution (70) | DRG 773 ==
LOC: YASAS 19:44 → Y3N 23:12
PROVIDERS: ADMIT Allergy & Immunology; ATTEND Surgery
PROC: HZ2ZZZZ Detoxification Services for Substance Abuse Treatment (ICD-10-PCS; principal; 2024-02-29)
DX: F13.230 Sedative, hypnotic or anxiolytic dependence with withdrawal, uncomplicated (principal); F11.20 Opioid dependence, uncomplicated; F14.20 Cocaine dependence, uncomplicated; F17.210 Nicotine dependence, cigarettes, uncomplicated; F32.A Depression, unspecified; F41.9 Anxiety disorder, unspecified; F19.982 Other psychoactive substance use, unspecified with psychoactive substance-induced sleep disorder; F19.980 Other psychoactive substance use, unspecified with psychoactive substance-induced anxiety disorder; J45.909 Unspecified asthma, uncomplicated; K21.9 Gastro-esophageal reflux disease without esophagitis; E78.5 Hyperlipidemia, unspecified; M19.90 Unspecified osteoarthritis, unspecified site; M54.59 Other low back pain; G89.29 Other chronic pain; Z56.0 Unemployment, unspecified; Z59.01 Sheltered homelessness
CPT/HCPCS: 36415; 80053; 80305; 80307; 85027; 87811

== ENCOUNTER 2024-03-02 13:37 | Inpatient (IN) | payer OTHER ==
[2024-03-02] MEDS ORDERED: LOPERAMIDE HCL 2 MG CAPSULE PO PRN (14:00)
[2024-03-02] MEDS ORDERED: MAGNESIUM HYDROX 2400MG/30ML ORAL SUSPENSION 30 ML CUP PO PRN (14:00)
[2024-03-02] MEDS ORDERED: NALOXONE (NARCAN) HCL 4 MG/0.1 ML SPRAY NS PRN (14:00)
[2024-03-02] MEDS ORDERED: IBUPROFEN 400 MG TABLET (FP) PO PRN (14:00)
[2024-03-02] MEDS ORDERED: guaiFENesin 600 MG TABLET.ER (FP) PO PRN (14:00)
[2024-03-02] MEDS ORDERED: BENZOCAINE/MENTHOL (CHLORASEPTIC ) LOZENGE MM PRN (14:00)
[2024-03-02] MEDS ORDERED: NALOXONE HCL 0.4 MG/ML VIAL IVPUSH PRN (14:00)
[2024-03-02] MEDS ORDERED: BENZONATATE 200 MG CAPSULE PO PRN (14:00)
[2024-03-02] MEDS ORDERED: POLYETHYLENE GLYCOL (HEALTHYLAX) 3350 17 GM PACKET PO PRN (14:00)
[2024-03-02] MEDS ORDERED: ACETAMINOPHEN 325 MG TABLET (FP) PO PRN (14:00)
[2024-03-02] MEDS: IBUPROFEN 600 MG TABLET (FP) PO PRN (17:13)
[2024-03-02] MEDS: MELATONIN 5 MG TABLETS PO PRN (22:47)
[2024-03-02] MEDS: ATORVASTATIN CA 20 MG TABLET (FP) PO SCH (22:47)
[2024-03-02] MEDS: busPIRone HCL 10 MG TABLET (FP) PO SCH (22:47)
[2024-03-02] MEDS: CEPHALEXIN MONOHYDRATE 500 MG CAPSULE (UD) PO SCH (22:47)
[2024-03-02] MEDS: THIAMINE 100 MG TABLET PO SCH (22:47)
[2024-03-02] MEDS: ALBUTEROL SO4 HFA INHALER IH PRN (22:49)
[2024-03-03] MEDS: QUEtiapine FUMARATE 100 MG TABLET (FP) PO ONE (01:09)
[2024-03-03] MEDS ORDERED: methaDONE HCL 10 MG TABLET PO SCH (06:00)
[2024-03-03] MEDS: PRENATAL VITAMINS W/ FOLIC ACID TABLET (FP) PO SCH (10:03)
[2024-03-03] MEDS: PANTOPRAZOLE 20 MG TABLET PO SCH (10:04)
[2024-03-03] MEDS: DULoxetine HCL 20 MG CAPSULE.DR PO SCH (21:49)
[2024-03-03] MEDS: QUEtiapine FUMARATE 200 MG TABLET PO SCH (21:49)
[2024-03-04] MEDS: MAG HYDROX/AL HYDROX/SIMETH 30 ML UNIT-DOSE CUP PO PRN (04:09)
[2024-03-04] MEDS: NICOTINE POLACRILEX 2 MG GUM BUC PRN (10:16)
[2024-03-06] MEDS: GABAPENTIN 300 MG CAPSULE PO SCH (09:45)
[2024-03-08] MEDS: BACLOFEN 10 MG TABLET (FP) PO SCH (11:00)
[2024-03-08] MEDS: GABAPENTIN 300 MG CAPSULE PO SCH (21:33)
[2024-03-09 11:17] LABS: INR 0.94 (0.83-1.09); PROTHROMBIN TIME (PATIENT) 10.8 SEC (9.7-13.0)
[2024-03-13] MEDS: PANTOPRAZOLE 20 MG TABLET PO SCH (06:11)
[2024-03-23] MEDS: BACITRACIN 0.9 GM PACKET TP SCH (13:30)
[2024-03-28 06:33] VITALS: RESP 20
[2024-03-29 06:31] VITALS: BP 102/64; PULSE 65; TEMP 97.8
== END 2024-03-29 09:40 | disposition home or self-care (01) | DRG 772 ==
LOC: YASAS 13:37 → Y3NR 13:39 → Y3E 03-05 12:37
PROVIDERS: ADMIT Allergy & Immunology; ATTEND Psychiatry & Neurology Pain Medicine
PROC: HZ42ZZZ Group Counseling for Substance Abuse Treatment, Cognitive-Behavioral (ICD-10-PCS; principal; 2024-03-02)
DX: F11.20 Opioid dependence, uncomplicated (principal); F14.20 Cocaine dependence, uncomplicated; F10.20 Alcohol dependence, uncomplicated; F13.20 Sedative, hypnotic or anxiolytic dependence, uncomplicated; F17.210 Nicotine dependence, cigarettes, uncomplicated; F43.10 Post-traumatic stress disorder, unspecified; F41.9 Anxiety disorder, unspecified; F32.A Depression, unspecified; J45.909 Unspecified asthma, uncomplicated; K21.9 Gastro-esophageal reflux disease without esophagitis; M19.90 Unspecified osteoarthritis, unspecified site; L98.8 Other specified disorders of the skin and subcutaneous tissue; R60.0 Localized edema; Z86.19 Personal history of other infectious and parasitic diseases
CPT/HCPCS: 36415; 82140; 82652; 83036; 83735; 85610; J0475

== ENCOUNTER 2024-05-18 12:11 | Inpatient (IN) | payer OTHER ==
[2024-05-18 12:54] VITALS: BMI 26.5
[2024-05-18] MEDS ORDERED: IBUPROFEN 600 MG TABLET (FP) PO PRN (13:33)
[2024-05-18] MEDS ORDERED: POLYETHYLENE GLYCOL (HEALTHYLAX) 3350 17 GM PACKET PO PRN (13:33)
[2024-05-18] MEDS ORDERED: BENZONATATE 200 MG CAPSULE PO PRN (13:33)
[2024-05-18] MEDS ORDERED: DICYCLOMINE HCL 10 MG CAPSULE PO PRN (13:33)
[2024-05-18] MEDS ORDERED: ACETAMINOPHEN 325 MG TABLET (FP) PO PRN (13:33)
[2024-05-18] MEDS ORDERED: hydrOXYzine PAMOATE 25 MG CAPSULE (FP) PO PRN (13:33)
[2024-05-18] MEDS ORDERED: METHOCARBAMOL 500 MG TABLET PO PRN (13:33)
[2024-05-18] MEDS ORDERED: IBUPROFEN 400 MG TABLET (FP) PO PRN (13:33)
[2024-05-18] MEDS ORDERED: guaiFENesin 600 MG TABLET.ER (FP) PO PRN (13:33)
[2024-05-18] MEDS ORDERED: BENZOCAINE/MENTHOL (CHLORASEPTIC ) LOZENGE MM PRN (13:33)
[2024-05-18] MEDS ORDERED: NALOXONE (NARCAN) HCL 4 MG/0.1 ML SPRAY NS PRN (13:33)
[2024-05-18] MEDS ORDERED: ONDANSETRON *ODT* 4 MG TABLET SL PRN (13:33)
[2024-05-18] MEDS ORDERED: MAGNESIUM HYDROX 2400MG/30ML ORAL SUSPENSION 30 ML CUP PO PRN (13:33)
[2024-05-18] MEDS ORDERED: LOPERAMIDE HCL 2 MG CAPSULE PO PRN (13:33)
[2024-05-18] MEDS ORDERED: BISMUTH SUBSALICYLATE 262 MG/15 ML BTL PO PRN (13:33)
[2024-05-18] MEDS ORDERED: diazePAM 5 MG TABLET PO PRN (13:33)
[2024-05-18] MEDS ORDERED: ALBUTEROL SO4 HFA INHALER IH PRN (14:24)
[2024-05-18] MEDS ORDERED: PRENATAL VITAMINS W/ FOLIC ACID TABLET (FP) PO ONE (14:40)
[2024-05-18] MEDS ORDERED: methaDONE HCL 10 MG TABLET PO ONE (14:40)
[2024-05-18] MEDS: PRENATAL VITAMINS W/ FOLIC ACID TABLET (FP) PO SCH (14:42)
[2024-05-18] MEDS: GABAPENTIN 300 MG CAPSULE PO SCH (15:40)
[2024-05-18] MEDS: diazePAM 5 MG TABLET PO SCH (17:43)
[2024-05-18] MEDS ORDERED: HYDROCORTISONE 1% TOPICAL CREAM 30 GM TUBE TP PRN (18:10)
[2024-05-18] MEDS ORDERED: MELATONIN 5 MG TABLETS PO SCH (22:00)
[2024-05-18] MEDS ORDERED: DULoxetine HCL 20 MG CAPSULE.DR PO SCH (22:00)
[2024-05-18] MEDS: QUEtiapine FUMARATE 100 MG TABLET (FP) PO SCH (22:46)
[2024-05-18] MEDS: THIAMINE 100 MG TABLET PO SCH (22:46)
[2024-05-18] MEDS: ATORVASTATIN CA 20 MG TABLET (FP) PO SCH (22:47)
[2024-05-18] MEDS: busPIRone HCL 10 MG TABLET (FP) PO SCH (22:47)
[2024-05-18] MEDS: DULoxetine HCL 20 MG CAPSULE.DR PO SCH (22:48)
[2024-05-18] MEDS: MAG HYDROX/AL HYDROX/SIMETH 30 ML UNIT-DOSE CUP PO PRN (22:53)
[2024-05-19] MEDS: PANTOPRAZOLE 20 MG TABLET PO SCH (06:02)
[2024-05-19] MEDS ORDERED: methaDONE HCL 40 MG DISPERSABLE TABLET PO SCH (10:00)
[2024-05-19] MEDS: BACITRACIN 0.9 GM PACKET TP SCH (10:09)
[2024-05-19 12:07] LABS: HEMATOCRIT 36.1 % (35.4-49); HEMOGLOBIN 11.9 GM/dL (11.7-16.9); MCH 29.8 pg (25.7-33.7); MCHC 32.9 g/dl (32.0-35.9); MEAN CELL VOLUME 90.7 fl (80-96); MEAN PLT VOLUME 8.1 fl (7.5-11.1); PLATELET COUNT 217 10^3/uL (134-434); RBC 3.99 M/mm3 (4.00-5.60); RDW 14.4 % (11.9-15.9); WHITE BLOOD COUNT 4.7 K/mm3 (4.0-10.0)
[2024-05-19 12:12] LABS: CALCIUM 9.4 mg/dL (8.5-10.1); CHLORIDE 108 mmol/L (98-107); POTASSIUM 4.1 mmol/L (3.5-5.1); SODIUM 143 mmol/L (136-145)
[2024-05-19 12:13] LABS: ALBUMIN 3.6 g/dl (3.4-5.0); ANION GAP 4 mmol/L (4-13); BLOOD UREA NITROGEN 12.6 mg/dL (7-18); CO2 32 mmol/L (21-32); GLUCOSE,RANDOM 108 mg/dL (74-106)
[2024-05-19 12:16] LABS: CREATININE 0.9 mg/dL (0.55-1.3); SGOT/AST 17 U/L (15-37); SGPT/ALT 22 U/L (13-61)
[2024-05-19 12:17] LABS: BILIRUBIN,TOTAL 0.2 mg/dL (0.2-1); TOT PROT 6.6 g/dl (6.4-8.2)
[2024-05-19 12:18] LABS: ALK PHOS 67 U/L (45-117)
[2024-05-20] MEDS: diazePAM 5 MG TABLET PO SCH (05:45)
[2024-05-21] MEDS: diazePAM 5 MG TABLET PO SCH (06:02)
[2024-05-22] MEDS: diazePAM 5 MG TABLET PO ONE (06:12)
[2024-05-22 09:45] VITALS: BP 116/63; PULSE 85; RESP 18; TEMP 97.3
[2024-05-22] MEDS: NALOXONE (NYS OPIOID OVERDOSE PROGRAM) 4 MG/0.1 ML SPRAY NS PRN (13:32)
== END 2024-05-22 09:07 | disposition other institution (70) | DRG 897 ==
LOC: YASAS 12:11 → Y6N 14:26
PROVIDERS: ADMIT Allergy & Immunology; ATTEND Surgery
PROC: HZ2ZZZZ Detoxification Services for Substance Abuse Treatment (ICD-10-PCS; principal; 2024-05-18)
DX: F10.230 Alcohol dependence with withdrawal, uncomplicated (principal); F11.20 Opioid dependence, uncomplicated; F14.20 Cocaine dependence, uncomplicated; F19.282 Other psychoactive substance dependence with psychoactive substance-induced sleep disorder; F19.280 Other psychoactive substance dependence with psychoactive substance-induced anxiety disorder; Z59.00 Homelessness unspecified; F17.210 Nicotine dependence, cigarettes, uncomplicated; F13.230 Sedative, hypnotic or anxiolytic dependence with withdrawal, uncomplicated; F25.0 Schizoaffective disorder, bipolar type; F43.10 Post-traumatic stress disorder, unspecified; F32.9 Major depressive disorder, single episode, unspecified; E78.00 Pure hypercholesterolemia, unspecified; J45.20 Mild intermittent asthma, uncomplicated; K21.9 Gastro-esophageal reflux disease without esophagitis; Z86.19 Personal history of other infectious and parasitic diseases; Z99.89 Dependence on other enabling machines and devices; Z56.0 Unemployment, unspecified
CPT/HCPCS: 36415; 80053; 80305; 80307; 85027; 86780; 93005; 93010

== ENCOUNTER 2024-10-17 10:54 | Inpatient (IN) | payer OTHER ==
[2024-10-17 11:28] VITALS: BMI 24.7
[2024-10-17] MEDS ORDERED: METHOCARBAMOL 500 MG TABLET PO PRN (11:48)
[2024-10-17] MEDS ORDERED: ACETAMINOPHEN 325 MG TABLET (FP) PO PRN (11:48)
[2024-10-17] MEDS ORDERED: LOPERAMIDE HCL 2 MG CAPSULE PO PRN (11:48)
[2024-10-17] MEDS ORDERED: BENZOCAINE/MENTHOL (CHLORASEPTIC ) LOZENGE MM PRN (11:48)
[2024-10-17] MEDS ORDERED: guaiFENesin 600 MG TABLET.ER (FP) PO PRN (11:48)
[2024-10-17] MEDS ORDERED: POLYETHYLENE GLYCOL (HEALTHYLAX) 3350 17 GM PACKET PO PRN (11:48)
[2024-10-17] MEDS ORDERED: IBUPROFEN 600 MG TABLET (FP) PO PRN (11:48)
[2024-10-17] MEDS ORDERED: DICYCLOMINE HCL 10 MG CAPSULE PO PRN (11:48)
[2024-10-17] MEDS ORDERED: BISMUTH SUBSALICYLATE 524 MG/30 ML PO PRN (11:48)
[2024-10-17] MEDS ORDERED: hydrOXYzine PAMOATE 25 MG CAPSULE (FP) PO PRN (11:48)
[2024-10-17] MEDS ORDERED: BENZONATATE 200 MG CAPSULE PO PRN (11:48)
[2024-10-17] MEDS ORDERED: MAGNESIUM HYDROX 2400MG/30ML ORAL SUSPENSION 30 ML CUP PO PRN (11:48)
[2024-10-17] MEDS ORDERED: IBUPROFEN 400 MG TABLET (FP) PO PRN (11:48)
[2024-10-17] MEDS ORDERED: NALOXONE (NARCAN) HCL 4 MG/0.1 ML SPRAY NS PRN (11:48)
[2024-10-17] MEDS ORDERED: ONDANSETRON *ODT* 4 MG TABLET SL PRN (11:48)
[2024-10-17] MEDS ORDERED: MAG HYDROX/AL HYDROX/SIMETH 30 ML UNIT-DOSE CUP PO PRN (11:48)
[2024-10-17] MEDS ORDERED: ALBUTEROL SO4 HFA INHALER IH PRN (11:51)
[2024-10-17] MEDS ORDERED: methaDONE HCL 10 MG TABLET PO ONE (12:30)
[2024-10-17] MEDS ORDERED: NICOTINE 21 MG/24 HOURS TOPICAL PATCH ONE (12:49)
[2024-10-17] MEDS: NICOTINE 21 MG/24 HOURS TOPICAL PATCH TD SCH (12:58)
[2024-10-17] MEDS: PANTOPRAZOLE 40 MG TABLET PO SCH (14:22)
[2024-10-17] MEDS: cloNIDine HCL 0.1 MG TABLET PO SCH (14:47)
[2024-10-17] MEDS: diazePAM 5 MG TABLET PO SCH (17:18)
[2024-10-17] MEDS: MIRTAZAPINE 15 MG TABLET (FP) PO SCH (22:06)
[2024-10-17] MEDS: MELATONIN 5 MG TABLETS PO SCH (22:06)
[2024-10-17] MEDS: THIAMINE 100 MG TABLET PO SCH (22:06)
[2024-10-17] MEDS: GABAPENTIN 100 MG CAPSULE PO PRN (22:06)
[2024-10-17] MEDS: ATORVASTATIN CA 20 MG TABLET (FP) PO SCH (22:06)
[2024-10-17] MEDS: BUDESONIDE/FORMETEROL FUMARATE 80/4.5 mcg INHALER IH SCH (22:09)
[2024-10-18] MEDS ORDERED: methaDONE HCL 40 MG DISPERSABLE TABLET PO SCH (06:00)
[2024-10-18] MEDS: PRENATAL VITAMINS W/ FOLIC ACID TABLET (FP) PO SCH (10:33)
[2024-10-18] MEDS: FAMOTIDINE 20 MG TABLET PO SCH (10:34)
[2024-10-18 11:14] LABS: HEMATOCRIT 33.1 % (40.1-51.0); HEMOGLOBIN 10.3 g/dL (13.7-17.5); MCHC 31.1 g/dl (32.3-36.5); MEAN CELL VOLUME 95.4 fl (79.0-92.2); MEAN PLT VOLUME 10.5 fl (9.4-12.4); PLATELET COUNT 208 x10^3/uL (163-337); RDW 13.5 % (12.2-16.4)
[2024-10-18 11:17] LABS: POTASSIUM 3.9 mmol/L (3.5-5.1)
[2024-10-18 11:31] LABS: ALBUMIN 4.1 g/dl (3.4-5.0); CALCIUM 9.2 mg/dL (8.5-10.1)
[2024-10-18 11:32] LABS: BILIRUBIN,TOTAL 0.4 mg/dL (0.2-1); BLOOD UREA NITROGEN 29.9 mg/dL (7-18); TOT PROT 7.4 g/dl (6.4-8.2)
[2024-10-18 11:35] LABS: CREATININE 1.3 mg/dL (0.55-1.3)
[2024-10-18] MEDS: NICOTINE POLACRILEX 4 MG GUM BUC PRN (22:21)
[2024-10-19] MEDS ORDERED: cloNIDine HCL 0.1 MG TABLET PO PRN
[2024-10-19] MEDS: diazePAM 5 MG TABLET PO SCH (05:48)
[2024-10-19] MEDS: diazePAM 5 MG TABLET PO PRN (09:42)
[2024-10-19] MEDS ORDERED: methaDONE HCL 10 MG TABLET PO ONE (10:00)
[2024-10-20] MEDS: diazePAM 5 MG TABLET PO SCH (05:27)
[2024-10-20] MEDS ORDERED: methaDONE HCL 40 MG DISPERSABLE TABLET PO SCH (06:00)
[2024-10-20] MEDS ORDERED: methaDONE HCL 10 MG TABLET PO ONE (10:00)
[2024-10-21] MEDS: diazePAM 5 MG TABLET PO ONE (06:01)
[2024-10-21] MEDS ORDERED: methaDONE HCL 10 MG TABLET PO ONE (10:00)
[2024-10-21 16:43] VITALS: RESP 16
[2024-10-22 06:41] VITALS: BP 110/65; PULSE 61; TEMP 97.6
[2024-10-22] MEDS ORDERED: methaDONE HCL 10 MG TABLET PO ONE (10:00)
== END 2024-10-22 08:34 | disposition home or self-care (01) | DRG 897 ==
LOC: YASAS 10:54 → Y3N 12:55
PROVIDERS: ADMIT Allergy & Immunology; ATTEND Allergy & Immunology
PROC: HZ2ZZZZ Detoxification Services for Substance Abuse Treatment (ICD-10-PCS; principal; 2024-10-17)
DX: F10.230 Alcohol dependence with withdrawal, uncomplicated (principal); F11.20 Opioid dependence, uncomplicated; F13.20 Sedative, hypnotic or anxiolytic dependence, uncomplicated; F14.20 Cocaine dependence, uncomplicated; F17.210 Nicotine dependence, cigarettes, uncomplicated; F25.0 Schizoaffective disorder, bipolar type; F19.24 Other psychoactive substance dependence with psychoactive substance-induced mood disorder; F43.10 Post-traumatic stress disorder, unspecified; E78.00 Pure hypercholesterolemia, unspecified; Z99.89 Dependence on other enabling machines and devices
CPT/HCPCS: 36415; 80053; 80305; 80307; 85027; 86780; 93005; 93010